=== PATIENT | male | born 1950 | race Caucasian/White ===

== ENCOUNTER 2017-04-17 18:34 | Inpatient (IN) | payer MEDICARE, OTHER ==
--- NOTE | 2017-04-17 18:49 | ED Physician Chart ---
ED Chief Complaint/HPI - Patient Information Date Seen:: 04/17/17 Time Seen:: 18:40 Chief Complaint:: AMS History of Present Illness:: onset x one day of AMS, ALOC, with abnormal labs; no report of trauma, H/As, LOC , S/T, neck pain, C/P, SOB, Abd. Pain, A/N/V/D/C, fever, chills, or urinary ss Historian:: Patient, EMS Review:: Nurse's Note Reviewed, Old Chart Reviewed, EMS run form Reviewed ED Review of Systems - Review of Systems General/Constitutional: No fever, No chills, No weight loss, No weakness, No diaphoresis, No edema, No loss of appetite Skin: No skin lesions, No rash, No bruising Head: No headache, No light-headedness Eyes: No loss of vision, No pain, No diplopia ENT: No earache, No nasal drainage, No sore throat, No tinnitus Neck: No neck pain, No swelling, No thyromegaly, No stiffness, No mass noted Cardio Vascular: No chest pain, No palpitations, No PND, No orthopnea, No edema Pulmonary: No SOB, No cough, No sputum, No wheezing GI: No nausea, No vomiting, No diarrhea, No pain, No melena, No hematochezia, No constipation, No hematemesis G/U: No dysuria, No frequency, No hematuria, No nacturia Musculoskeletal: No bone or joint pain, No back pain, No muscle pain Endocrine: No polyuria, No polydipsia Psychiatric: Prior psych history, No depression, Anxiety, No suicidal ideation, No homicidal ideation, Auditory hallucination, No visual hallucination Hematopoietic: No bruising, No lymphadenopathy Allergic/Immuno: No urticaria, No angioedema Neurological: No syncope, No focal symptoms, No weakness, No paresthesia, No headache, No seizure, No dizziness, Confusion, No vertigo ED Past Medical History - Past Medical History Obtainable: Yes Past Medical History: Dyslipidemia, PUD/GERD, Dementia, Other (Cirrhosis; Hepatitis C) Family History: Diabetes Melitus, HTN Social History: Smoker, Alcohol, No Drug Use, Single, Care Facility Surgical History: other (Hip Surgery) Psychiatricy History: Depression, Schizophrenia, Bipolar, Dementia Medication: Reviewed ED Physical Exam - Physical Examination General/Constitutional: Awake, Well-developed, well-nourished, Alert, No distress, GCS 15, Non-toxic appearing, Ambulatory Head: Atraumatic Eyes: Lids, conjuctiva normal, PERRL, EOMI Skin: Nl inspection, No rash, No skin lesions, No ecchymosis, Well hydrated, No lymphadenopathy ENMT: External ears, nose nl, TM canals nl, Nasal exam nl, Lips, teeth, gums nl , Oropharynx nl, Tonsils nl Neck: Nontender, Full ROM w/o pain, No JVD, No nuchal rigidity, No bruit, No mass, No stridor Respiratory: Nl effort/Exclusion, Clear to Auscultation, No Wheeze/Rhonchi/Rales Cardio Vascular: RRR, No murmur, gallop, rubs, NL S1 S2, Carotid/Femoral/Distal pulses equal bilaterally GI: No tenderness/rebounding/guarding, No organomegaly, No hernia, Normal BS's, Nondistended, No mass/bruits, No McBurney tenderness : No CVA tenderness Extremities: No tenderness or effusion, Full ROM, normal strength in all extremities, No edema, Normal digits & nails Neuro/Psych: Alert/oriented, DTR's symmetric, Normal sensory exam, Normal motor strength, Judgement/insight normal, Mood normal, Normal gait, No focal deficits Misc: Normal back, No paraspinal tenderness ED Labs/Radiology/EKG Results - Lab Results Comments:: H/H: 8.1/24.9 - EKG Interpretations EKG Time:: 19:00 Rate & Rhythm: 75; NSR Comments:: non-specific st-t changes ED Septic Shock - . Is Septic Shock (SBP<90, OR Lactate>4 mmol\L) present?: No ED Reassessment (Disposition) - Reassessment Reassessment Condition:: Improved - Diagnosis Diagnosis:: Anemia; ALOC; AMS; Abnormal Labs; Severe Anemia; GI Bleed - Aftercare/Follow up Instructions Aftercare/Follow-Up Instructions:: Counseled pt regarding lab results/diagnosis & need follow up, Counseled pt & family regarding lab results/diagnosis & need follow up - Patient Disposition Discharge/Transfer:: Acute Care w/in this hosp Accepting Physician:: Dr. Mcallister Time Called:: 1949 Time Responded:: 19:50 Admitted to:: Med/Surg Spoke to:: Dr. Mcallister Admitting Medical Physician:: Dr. Mcallister Condition at Disposition:: Stable, Improved
[2017-04-17 19:06] LABS: % BASOPHILS 1.1 % (0.0-2.0); % EOSINOPHILS 0.9 % (0.0-5.0); % LYMPHOCYTES 33.1 % (20.0-50.0); % MONOCYTES 10.6 % (2.0-10.0); % NEUTROPHILS 54.3 % (40.0-80.0); BASOPHILE ABSOLUTE 0.1 Th/cumm (0-0.2); EOSINOPHILE ABSOLUTE 0.1 Th/cmm (0.1-0.4); HEMATOCRIT 24.9 % (41.0-60); HEMOGLOBIN 8.1 gm/dL (12-16); MEAN CELL VOLUME 81.8 fl (80-99); MEAN CORPUSCULAR HEMOGLOBIN 26.7 pg (27.0-31.0); MEAN CORPUSCULAR HGB CONC 32.7 pg (28.0-36.0); MEAN PLATELET VOLUME 7.3 fl; MONOCYTE ABSOLUTE 0.6 Th/cmm (0.3-1.0); NEUTROPHILE ABSOLUTE 3.2 Th/cmm (1.8-8.0); PLATELET COUNT 519 Th/cmm (150-400); RED BLOOD COUNT 3.04 Mil/cmm (3.80-5.80)
[2017-04-17 19:21] LABS: ALB/GLOB RATIO 1.2 (1.0-1.8); ALBUMIN 3.3 gm/dL (4.2-5.5); ALKALINE PHOSPHATASE 46 U/L (34-104); ANION GAP 9.9 (7.0-16.0); BILIRUBIN,TOTAL 0.1 mg/dL (0.3-1.0); BUN - UREA NITROGEN 17 mg/dL (7-25); CALCIUM SERUM 8.9 mg/dL (8.6-10.3); CARBON DIOXIDE 25.9 mEq/L (21.0-31.0); CHLORIDE 105 mEq/L (98-107); CHOLESTEROL 111 mg/dL (<200); CREATININE - SERUM 0.8 mg/dL (0.7-1.3); CREATININE KINASE 104 U/L (30-223); GFR AFRICAN-AMERICAN > 60.0 ml/min (>90); GFR NON AFRICAN-AMERICAN > 60.0 ml/min; GLUCOSE 67 mg/dL (70-105); HDL -HIGH DENSITY LIPOPROTEIN 47 mg/dL (23-92); POTASSIUM SERUM 3.8 mEq/L (3.5-5.1); SGOT 14 U/L (13-39); SGPT/ALT 10 U/L (7-52); SODIUM SERUM 137 mEq/L (136-145); TOTAL PROTEIN,SERUM 6.1 gm/dL (6.0-8.3); TRIGLYCERIDES 85 mg/dL (<150)
[2017-04-17 19:28] LABS: INR 1.02 (0.5-1.4); PROTHROMBIN TIME (TEST) 10.6 SECONDS (9.5-11.5)
[2017-04-17] MEDS ORDERED: Magnesium Hydroxide (MOM) 30 mL UDC PO PRN (20:08)
[2017-04-17] MEDS ORDERED: Maalox 30 mL Cup PO PRN (20:11)
[2017-04-17 21:40] VITALS: BP 132/76
[2017-04-17] MEDS: Hydrocodone/APAP 5mg/325mg Tab PO PRN (23:19)
[2017-04-17] MEDS: D5-0.45NS 1,000 ML IV SCH (23:21)
[2017-04-18 05:20] LABS: MEAN CELL VOLUME 81.6 fl (80-99); MEAN CORPUSCULAR HEMOGLOBIN 26.6 pg (27.0-31.0); MEAN CORPUSCULAR HGB CONC 32.5 pg (28.0-36.0); MEAN PLATELET VOLUME 7.4 fl; PLATELET COUNT 496 Th/cmm (150-400); RED BLOOD COUNT 2.92 Mil/cmm (3.80-5.80); RED CELL DISTRIBUTION WIDTH 16.1 % (11.5-20.0); WHITE BLOOD COUNT 7.7 Th/cmm (4.8-10.8)
[2017-04-18 05:32] LABS: HEMATOCRIT 23.9 % (41.0-60); HEMOGLOBIN 7.8 gm/dL (12-16)
[2017-04-18 05:41] LABS: ANION GAP 9.8 (7.0-16.0); BUN - UREA NITROGEN 17 mg/dL (7-25); CALCIUM SERUM 8.7 mg/dL (8.6-10.3); CARBON DIOXIDE 27.7 mEq/L (21.0-31.0); CHLORIDE 106 mEq/L (98-107); CREATININE - SERUM 0.6 mg/dL (0.7-1.3); GFR AFRICAN-AMERICAN > 60.0 ml/min (>90); GFR NON AFRICAN-AMERICAN > 60.0 ml/min; GLUCOSE 89 mg/dL (70-105); POTASSIUM SERUM 3.5 mEq/L (3.5-5.1); SODIUM SERUM 140 mEq/L (136-145)
[2017-04-18 05:55] LABS: EOSINOPHIL 1 % (0-5); LYMPHOCYTE 27 % (20-50); MONOCYTE 12 % (2-10); NEUTROPHILS 60 % (40-80); TOTAL CELLS COUNTED 100
[2017-04-18] MEDS: Hydrocodone/APAP 5mg/325mg Tab PO PRN ×3 (06:32→21:38)
--- NOTE | 2017-04-18 08:34 | Diagnostic Imaging Report ---
Right shoulder 3 views Indication: Dislocation Comparison: none Findings: Postsurgical changes of the cervical spine are noted. Extremely high riding humeral head is seen with complete loss of the subacromial space and glenohumeral subluxation. Findings are most suggestive of a severe rotator cuff tear. Assessment for fracture is limited on this examination. There appears to be fragmentation of the acromion process. Impression: Extremely high riding humeral head with superior glenohumeral subluxation most likely secondary to chronic large rotator cuff tear. There appears to be fragmentation of the acromion process which is age indeterminate and may be chronic. Please refer to follow-up CT examination for further details. In the setting of trauma, if clinical symptoms persist and there is continued concern for an occult fracture, follow up exams in 5-7 days is suggested.
[2017-04-18] MEDS: D5-0.45NS 1,000 ML IV SCH (08:44)
[2017-04-18] MEDS: Multivitamin w/ Minerals Tab PO SCH (08:45)
[2017-04-18] MEDS: Ferrous Sulfate 325 MG TAB PO SCH (08:49)
[2017-04-18] MEDS: Pantoprazole 40 mg EC Tab PO SCH ×2 (08:49→16:48)
[2017-04-18] MEDS ORDERED: OMEPRAZOLE MAGNESIUM 20 MG PO SCH (09:00)
--- NOTE | 2017-04-18 09:03 | Diagnostic Imaging Report ---
CT of the right upper extremity without IV contrast History: Dislocation Comparison: CT of the right shoulder performed earlier the same day Technique: Axial images were obtained from the base of the neck to the proximal right humerus without IV contrast. Reconstructions were made. Total DLP 270, CTDI 13 Findings: There is a severe high riding humeral head with superior glenohumeral subluxation. There is diffuse fragmentation of the acromion process. A no gross acute fracture identified. Diffuse degenerative changes are seen with osteophytic spurs arising from the humeral head. Subchondral cystic changes of the humeral head are also noted. The lung de [place] demonstrate hypoventilatory changes. Postsurgical changes of the cervical and upper thoracic spine are noted. IMPRESSION: Severe high right riding humeral head with superior glenohumeral subluxation most likely due to chronic rotator cuff tear. There is also chronic appearing diffuse fragmentation of the acromion process. Please correlate with clinical findings and old exams. Degenerative changes. Posterior changes of the cervical thoracic spine.
--- NOTE | 2017-04-18 12:39 | Internal Medicine Prog Note ---
Internal Medicine Subjective - Subjective Service Date: 04/18/17 ([facility] dictated [id number]) Internal Medicine Objective - Results Result Diagrams: 04/18/17 04:50 04/18/17 04:50 Recent Labs: Laboratory Last Values WBC 7.7 Th/cmm (4.8-10.8) D 04/18/17 04:50 RBC 2.92 Mil/cmm (3.80-5.80) L 04/18/17 04:50 Hgb 7.8 gm/dL (12-16) L* 04/18/17 04:50 Hct 23.9 % (41.0-60) L 04/18/17 04:50 MCV 81.6 fl (80-99) 04/18/17 04:50 MCH 26.6 pg (27.0-31.0) L 04/18/17 04:50 MCHC Differential 32.5 pg (28.0-36.0) 04/18/17 04:50 RDW 16.1 % (11.5-20.0) 04/18/17 04:50 Plt Count 496 Th/cmm (150-400) H 04/18/17 04:50 MPV 7.4 fl 04/18/17 04:50 Neutrophils % 54.3 % (40.0-80.0) 04/17/17 18:59 Lymphocytes % 33.1 % (20.0-50.0) 04/17/17 18:59 Monocytes % 10.6 % (2.0-10.0) H 04/17/17 18:59 Eosinophils % 0.9 % (0.0-5.0) 04/17/17 18:59 Basophils % 1.1 % (0.0-2.0) 04/17/17 18:59 Neutrophils (Manual) 60 % (40-80) 04/18/17 04:50 Lymphocytes 27 % (20-50) 04/18/17 04:50 Monocytes 12 % (2-10) H 04/18/17 04:50 Eosinophils 1 % (0-5) 04/18/17 04:50 PT 10.6 SECONDS (9.5-11.5) 04/17/17 18:59 INR 1.02 (0.5-1.4) 04/17/17 18:59 Sodium 140 mEq/L (136-145) 04/18/17 04:50 Potassium 3.5 mEq/L (3.5-5.1) 04/18/17 04:50 Chloride 106 mEq/L (98-107) 04/18/17 04:50 Carbon Dioxide 27.7 mEq/L (21.0-31.0) 04/18/17 04:50 Anion Gap 9.8 (7.0-16.0) 04/18/17 04:50 BUN 17 mg/dL (7-25) 04/18/17 04:50 Creatinine 0.6 mg/dL (0.7-1.3) L 04/18/17 04:50 Est GFR ( Amer) > 60.0 ml/min (>90) 04/18/17 04:50 Est GFR (Non-Af Amer) > 60.0 ml/min 04/18/17 04:50 BUN/Creatinine Ratio 28.3 04/18/17 04:50 Glucose 89 mg/dL (70-105) 04/18/17 04:50 Calcium 8.7 mg/dL (8.6-10.3) 04/18/17 04:50 Total Bilirubin 0.1 mg/dL (0.3-1.0) L 04/17/17 18:59 AST 14 U/L (13-39) 04/17/17 18:59 ALT 10 U/L (7-52) 04/17/17 18:59 Alkaline Phosphatase 46 U/L (34-104) 04/17/17 18:59 Ammonia 44 umol/L (16-53) 04/18/17 04:50 Creatine Kinase 104 U/L (30-223) 04/17/17 18:59 Troponin I < 0.01 ng/mL (0.01-0.05) L 04/17/17 18:59 B-Natriuretic Peptide 143.0 pg/mL (5.0-100.0) H 04/17/17 18:59 Total Protein 6.1 gm/dL (6.0-8.3) 04/17/17 18:59 Albumin 3.3 gm/dL (4.2-5.5) L 04/17/17 18:59 Globulin 2.8 gm/dL 04/17/17 18:59 Albumin/Globulin Ratio 1.2 (1.0-1.8) 04/17/17 18:59 Triglycerides 85 mg/dL (<150) 04/17/17 18:59 Cholesterol 111 mg/dL (<200) 04/17/17 18:59 LDL Cholesterol Direct 67 mg/dL (75-193) L 04/17/17 18:59 HDL Cholesterol 47 mg/dL (23-92) 04/17/17 18:59 TSH 1.79 uIU/ml (0.34-5.60) 04/18/17 04:50 - Physical Exam Vitals and I&O: Vital Signs Temp 96.5 F 04/18/17 08:00 Pulse 79 04/18/17 09:38 Resp 18 04/18/17 09:38 BP 108/66 04/18/17 08:00 Pulse Ox 98 04/18/17 09:38 Intake & Output 04/17/17 04/18/17 04/18/17 18:59 06:59 18:59 Intake Total 450 750.667 Balance 450 750.667 Weight (lbs) 152 lb Intake: Intake, IV Amount 750.667 D5-0.45NS 1,000 ml @ 80 750.667 mls/hr IV .[id number] [facility] Rx #:[id number] Oral 450 Other: # Voids 2 # Bowel Movements 0 Active Medications: Current Medications Acetaminophen (Tylenol) 650 mg PO BID [facility] Stop: 06/17/17 08:59 Last Admin: 04/18/17 08:45 Dose: 650 mg Acetaminophen (Tylenol) 650 mg PO Q4H PRN PRN Reason: Pain Or Fever above 101 Stop: 06/16/17 20:10 Acetaminophen/Hydrocodone Bitart ([place] 5mg/325mg) 1 tab PO Q8H PRN PRN Reason: Pain (Severe) Stop: 06/16/17 21:36 Last Admin: 04/18/17 06:32 Dose: 1 tab Al Hydrox/Mg Hydrox/Simethicone (Maalox) 30 ml PO Q6H PRN PRN Reason: Dyspepsia Stop: 06/16/17 20:10 Albuterol Sulfate (Albuterol 2.5mg/3ml Neb Ud) 2.5 mg HHN Q2HRT PRN PRN Reason: Shortness of Breath or Wheeze Stop: 06/16/17 20:10 Aripiprazole (Abilify) 10 mg PO HS [facility] PRN Reason: Protocol Stop: 06/16/17 20:59 Last Admin: 04/18/17 00:26 Dose: Not Given Cyclobenzaprine HCl (Flexeril) 10 mg PO Q8HR PRN PRN Reason: Spasms Stop: 06/16/17 21:36 Last Admin: 04/18/17 06:33 Dose: 10 mg Docusate Sodium (Colace) 100 mg PO DAILY [facility] Stop: 06/17/17 08:59 Last Admin: 04/18/17 08:48 Dose: 100 mg Duloxetine HCl (Cymbalta) 30 mg PO DAILY [facility] PRN Reason: Protocol Stop: 06/17/17 08:59 Last Admin: 04/18/17 08:48 Dose: 30 mg Ferrous Sulfate (Iron) 325 mg PO DAILY [facility] Stop: 06/17/17 08:59 Last Admin: 04/18/17 08:49 Dose: 325 mg Gabapentin (Neurontin) 300 mg PO TID [facility] Stop: 06/16/17 20:59 Last Admin: 04/18/17 08:48 Dose: 300 mg Dextrose/Sodium Chloride (D5-0.45ns) 1,000 mls @ 80 mls/hr IV .[id number] [facility] Stop: 06/16/17 20:14 Last Admin: 04/18/17 08:44 Dose: 80 mls/hr Ipratropium Ethel (Atrovent Neb 0.5mg/2.5ml) 0.5 mg HHN Q2HRT PRN PRN Reason: Shortness of Breath or Wheeze Stop: 06/16/17 20:10 Magnesium Hydroxide (Milk Of Magnesia) 30 ml PO DAILY PRN PRN Reason: Constipation Stop: 06/16/17 20:07 Nitroglycerin (Nitrostat) 0.4 mg SL Q5MIN PRN PRN Reason: Chest Pain Stop: 06/16/17 20:10 Ondansetron HCl (Zofran) 4 mg IV Q8H PRN PRN Reason: Nausea / Vomiting Stop: 06/16/17 20:10 Pantoprazole Sodium (Protonix) 40 mg PO BID [facility] Stop: 06/17/17 08:59 Last Admin: 04/18/17 08:49 Dose: 40 mg
--- NOTE | 2017-04-18 15:03 | Diagnostic Imaging Report ---
Head CT without intravenous contrast Indication: Fall Comparison: None Technique: Axial images were obtained from the vertex to the skull base without IV contrast. Coronal reconstructions were made. Total DLP: 590, CTDI36 FINDINGS: Images of the brain obtained without contrast demonstrate no evidence of an acute hemorrhage. The bianchi-white matter differentiation is preserved. The ventricles and basal cisterns are patent. No mass effect or midline shift. No evidence of a skull fracture or focal soft tissue swelling. There is mild mucosal thickening of the paranasal sinuses. IMPRESSION: No acute intracranial abnormality.
--- NOTE | 2017-04-18 15:07 | History & Physical ---
ADMIT DATE: 04/18/2017 CHIEF COMPLAINT: Abnormal labs. HISTORY OF PRESENT ILLNESS: This is a 66-year-old male who is well known to me. The patient is a resident of [facility] who I have evaluated yesterday. Upon reviewing the patient's laboratory results, patient's hemoglobin was at 7.4 at the [facility]. Due to this reason, the patient is now admitted to the med/surg unit. PAST MEDICAL HISTORY: Dyslipidemia, PUD, GERD, dementia, cirrhosis and hepatitis C. FAMILY HISTORY: Noncontributory. SOCIAL HISTORY: The patient is a [facility] resident, requiring 24-hour nursing care. SURGICAL HISTORY: Hip surgery. MEDICATIONS: Please see medication sheet. REVIEW OF SYSTEMS: GENERAL: Denies any fevers, any chills. CARDIOVASCULAR: Denies chest pain. RESPIRATORY: Denies shortness of breath. GASTROINTESTINAL: Denies nausea, vomiting, abdominal pain. GENITOURINARY: Denies increased work of dysuria. NEUROLOGIC: No headaches, seizures or syncope. All other systems are reviewed and are negative. PHYSICAL EXAMINATION: GENERAL: The patient is well developed, well nourished, no apparent distress. VITAL SIGNS: Temperature 96.5, heart rate 90, blood pressure 108/66, respirations 17, O2 98%. HEENT: Head; normocephalic, atraumatic. NECK: Supple. No mass. LUNGS: Clear bilaterally. ABDOMEN: Soft, nontender. LABORATORY DATA: WBC 7.7, H and H 7.8 and 23.9, platelet 496. Sodium 140, potassium 3.5, chloride 106, BUN 17, creatinine 0.6. BNP of 143, albumin of 3.3. DIAGNOSTICS: The patient had a CT of the upper extremity due to patient complaining of bilateral shoulder pain and the impression is severe high-riding humeral head with superior glenohumeral subluxation, mostly likely due to chronic rotator cuff tear. There is also chronic appearing diffuse fragmentation of the acromion process, degenerative changes. The patient has an x-ray of the shoulder as well and the impression is extremely high riding humeral head with superior glenohumeral subluxation, most likely secondary to chronic large rotator cuff tear. There appears to be fragmentation of the acromion process, which is age indeterminate and may be chronic. ASSESSMENT: Severe anemia, possible gastrointestinal bleed, dyslipidemia, GERD, dementia, cirrhosis and hepatitis C. PLAN: The patient to be admitted to the med/surg unit. We will get GI on the case. We will keep the patient on IV fluids for hydration. We will get stool for occult blood. Monitor the patient's ferritin levels as well as iron. Keep patient on PPIs. We will continue to follow this patient. JOB# [id number]
[2017-04-18 19:02] LABS: RBC RETICULOCYTE COUNT 2.92 Mil/cmm
[2017-04-18 19:03] LABS: ABSOLUTE RETICULOCYTE 17.5 Th/cmm; CORRECTED RETICULOCYTE COUNT 0.3 % (0.5-1.5); HEMATOCRIT 23.9 % (40.0-54.0); RETICULOCYTES % COUNTED 0.6 % (0.5-1.5)
--- NOTE | 2017-04-19 01:45 | Consultation ---
DATE OF CONSULTATION: 04/18/2017 ORTHOPEDIC SURGERY CONSULTATION HISTORY OF PRESENT ILLNESS: The patient is a 66-year-old gentleman admitted to [facility] on 04/17/2017 for workup and treatment of abnormal labs and neck and shoulder pain. I was called in orthopedic consultation regarding his complaints of shoulder pain. The patient stated he has rheumatoid arthritis and affects all of his joints. He has had arthroscopic right knee surgery on three different occasions. He has also had hip surgery. He stated both shoulders are painful at times and he has difficulty fully raising his arms. He thinks his condition became progressive over a period of time - it was not due to a particular injury. The patient who is a resident of [facility] carries additional diagnoses of GERD, dementia, cirrhosis, hepatitis C, PUD, dyslipidemia, anemia, ALOC, and GI bleeding. FAMILY HISTORY: Noncontributory. REVIEW OF SYSTEMS: No additional systemic complaints. PHYSICAL EXAMINATION: The patient is examined in his hospital room at [facility]. He was eating his evening meal and seemed comfortable. I noted enlargement of the IP joints of his fingers, both hands. I asked him to raise his shoulders and he was able to move to 70% of normal movement with discomfort and crepitation, worse on the right with assistance, unable to range the shoulders more. There is enlargement of the right knee joint and well healed arthroscopic scars with limited extension at 165 degrees. IMAGING STUDIES: Reviewed x-rays in the PACS of the patient's right shoulder. The humeral head is articulating up against the acromion and the coracoid process, which indicates that the long head of the biceps and the rotator cuff are absent. There is narrowing and enlargement of the acromioclavicular joint, i.e., arthritis. ORTHOPEDIC DIAGNOSES: 1. Generalized arthritis -- probably rheumatoid arthritis. 2. Decrease in rotator cuff and long head of biceps, right shoulder. 3. Arthritis, right shoulder. 4. Arthritis, acromioclavicular joint. RECOMMENDATIONS: The patient who appears older than stated age and who is chronically ill is no candidate for shoulder replacement surgery - a fairly major procedure. He is reasonably comfortable in his present state and uses his shoulder as well. If it were desired and if his condition would permit he could have surgery either hemiarthroplasty or total shoulder replacement, which would afford him significantly relief. Thank you for this interesting referral. JOB# [id number]
[2017-04-19 05:13] LABS: HEMATOCRIT 24.7 % (41.0-60); MEAN CELL VOLUME 81.9 fl (80-99); MEAN CORPUSCULAR HEMOGLOBIN 25.6 pg (27.0-31.0); MEAN CORPUSCULAR HGB CONC 31.2 pg (28.0-36.0); MEAN PLATELET VOLUME 7.3 fl; PLATELET COUNT 477 Th/cmm (150-400); RED BLOOD COUNT 3.02 Mil/cmm (3.80-5.80); RED CELL DISTRIBUTION WIDTH 15.8 % (11.5-20.0)
[2017-04-19 05:21] LABS: HEMOGLOBIN 7.7 gm/dL (12-16); WHITE BLOOD COUNT 5.7 Th/cmm (4.8-10.8)
[2017-04-19 05:27] LABS: INR 1.01 (0.5-1.4); PROTHROMBIN TIME (TEST) 10.5 SECONDS (9.5-11.5)
[2017-04-19 05:31] LABS: ALB/GLOB RATIO 1.1 (1.0-1.8); ALKALINE PHOSPHATASE 51 U/L (34-104); ANION GAP 8.1 (7.0-16.0); BILIRUBIN,TOTAL 0.2 mg/dL (0.3-1.0); BUN - UREA NITROGEN 15 mg/dL (7-25); CALCIUM SERUM 8.6 mg/dL (8.6-10.3); CARBON DIOXIDE 29.5 mEq/L (21.0-31.0); CHLORIDE 105 mEq/L (98-107); CREATININE - SERUM 0.6 mg/dL (0.7-1.3); GFR AFRICAN-AMERICAN > 60.0 ml/min (>90); GFR NON AFRICAN-AMERICAN > 60.0 ml/min; GLUCOSE 88 mg/dL (70-105); POTASSIUM SERUM 3.6 mEq/L (3.5-5.1); SGOT 18 U/L (13-39); SGPT/ALT 13 U/L (7-52); SODIUM SERUM 139 mEq/L (136-145); TOTAL PROTEIN,SERUM 5.7 gm/dL (6.0-8.3)
[2017-04-19 06:07] LABS: EOSINOPHIL 2 % (0-5); LYMPHOCYTE 44 % (20-50); MONOCYTE 7 % (2-10); NEUTROPHILS 47 % (40-80); TOTAL CELLS COUNTED 100
--- NOTE | 2017-04-19 07:51 | Diagnostic Imaging Report ---
Some: Chest x-ray HISTORY: Preop. Frontal termination of the chest was reviewed. The study demonstrates no active pulmonic infiltrates or effusions. COPD changes are noted. Mild atelectatic changes in left base appreciated. Bony thorax remarkable for fusion of the lower cervical spine. The aortic arch calcified. IMPRESSION: COPD changes no acute disease.
[2017-04-19] MEDS: D5-0.45NS 1,000 ML IV SCH ×2 (08:08→14:24)
[2017-04-19] MEDS: Ferrous Sulfate 325 MG TAB PO SCH (09:25)
[2017-04-19] MEDS: Multivitamin w/ Minerals Tab PO SCH (09:25)
[2017-04-19] MEDS: Pantoprazole 40 mg EC Tab PO SCH ×2 (09:26→17:41)
--- NOTE | 2017-04-19 11:26 | Consultation ---
DATE OF CONSULTATION: 04/18/2017 REASON FOR CONSULT: Severe anemia. HISTORY OF PRESENT ILLNESS: This consult was obtained through the courtesy of Dr. Mcallister and Harper Beltran, nurse practitioner for this 66-year-old with history of hepatitis C, cirrhosis, early dementia, peptic ulcer disease, hyperlipidemia, admitted to the hospital because of routine blood tests that shows hemoglobin down to 7.4. The patient denies any active complaint except occasional nausea. PAST MEDICAL HISTORY: Hyperlipidemia, peptic ulcer disease, hepatitis C, cirrhosis, possible dementia. PAST SURGICAL HISTORY: He had back surgery. He had leg surgery. He had arm surgery and thyroid surgery and he has neck surgery. SOCIAL HISTORY: Used to drink a pint of vodka every day, but cut down and use drugs in the nose, last time was 4 weeks ago. FAMILY HISTORY: Noncontributory. REVIEW OF SYSTEMS: No weight loss, no hematemesis, melena, or hematochezia. PHYSICAL EXAMINATION: GENERAL: The patient is awake, oriented to self, place, and time. VITAL SIGNS: Blood pressure is 112/72, heart rate 79, respiratory rate 17, temperature is 98.2. HEAD AND NECK: Pupils reactive to light and accommodation. Extraocular muscles intact. Sclerae are anicteric. Conjunctivae pale. Oral cavity, no lesion. NECK: Supple. No jugular venous distention. No carotid bruit or lymph node. CHEST: Good air entry. LUNGS: Clear to auscultation. BACK: Showed big lipoma, a medium size lipoma, possible erythema. ABDOMEN: Soft, benign, nontender. Bowel sounds are present. EXTREMITIES: Lower extremities, no edema. CENTRAL NERVOUS SYSTEM: Grossly nonfocal. LABORATORY DATA: Hemoglobin 7.8. PT is normal. Chemistry showed normal liver enzymes. Albumin is low at 3.3. The patient had a head CT, no acute abnormalities. IMPRESSION: A 66-year-old with anemia. ASSESSMENT: Anemia. The patient will need gastrointestinal workup, rule out upper gastrointestinal malignancy versus colon cancer versus colitis versus peptic ulcer disease. RECOMMENDATIONS: 1. Monitor H and H. 2. Transfuse as needed. 3. Iron studies and B12 and folic acid. 4. EGD and colonoscopy in the morning. 5. Further recommendations to follow. Other medical problems such as hyperlipidemia, thyroid, etc., as per Dr. Mcallister. History of hepatitis C and cirrhosis. This needs to be checked as an outpatient at least for the time being, platelets are normal and albumin is not bad, so maybe patient is not really ____. Thank you, Dr. Mcallister for allowing me to participate in the care of the patient. If you have any further questions, please let me know. JOB# [id number]
--- NOTE | 2017-04-19 11:55 | Internal Medicine Prog Note ---
Internal Medicine Subjective - Subjective Service Date: 04/19/17 Patient seen and examined:: with staff Patient is:: awake Per staff patient has:: tolerating meds Internal Medicine Objective - Results Result Diagrams: 04/19/17 04:50 04/19/17 04:50 Recent Labs: Laboratory Last Values WBC 5.7 Th/cmm (4.8-10.8) D 04/19/17 04:50 RBC 3.02 Mil/cmm (3.80-5.80) L 04/19/17 04:50 Hgb 7.7 gm/dL (12-16) L* 04/19/17 04:50 Hct 24.7 % (41.0-60) L 04/19/17 04:50 MCV 81.9 fl (80-99) 04/19/17 04:50 MCH 25.6 pg (27.0-31.0) L 04/19/17 04:50 MCHC Differential 31.2 pg (28.0-36.0) 04/19/17 04:50 RDW 15.8 % (11.5-20.0) 04/19/17 04:50 Plt Count 477 Th/cmm (150-400) H 04/19/17 04:50 MPV 7.3 fl 04/19/17 04:50 Neutrophils % 54.3 % (40.0-80.0) 04/17/17 18:59 Band Neutrophils % Not Reportable 04/19/17 04:50 Lymphocytes % 33.1 % (20.0-50.0) 04/17/17 18:59 Monocytes % 10.6 % (2.0-10.0) H 04/17/17 18:59 Eosinophils % 0.9 % (0.0-5.0) 04/17/17 18:59 Basophils % 1.1 % (0.0-2.0) 04/17/17 18:59 Neutrophils (Manual) 47 % (40-80) 04/19/17 04:50 Lymphocytes 44 % (20-50) 04/19/17 04:50 Monocytes 7 % (2-10) 04/19/17 04:50 Eosinophils 2 % (0-5) 04/19/17 04:50 Total Retics Counted 0.6 % (0.5-1.5) 04/18/17 04:50 Absolute Retic 17.5 Th/cmm 04/18/17 04:50 Corrected Retic Count 0.3 % (0.5-1.5) L 04/18/17 04:50 PT 10.5 SECONDS (9.5-11.5) 04/19/17 04:50 INR 1.01 (0.5-1.4) 04/19/17 04:50 PTT (Actin FS) 25.5 SECONDS (26.0-38.0) L 04/19/17 04:50 Sodium 139 mEq/L (136-145) 04/19/17 04:50 Potassium 3.6 mEq/L (3.5-5.1) 04/19/17 04:50 Chloride 105 mEq/L (98-107) 04/19/17 04:50 Carbon Dioxide 29.5 mEq/L (21.0-31.0) 04/19/17 04:50 Anion Gap 8.1 (7.0-16.0) 04/19/17 04:50 BUN 15 mg/dL (7-25) 04/19/17 04:50 Creatinine 0.6 mg/dL (0.7-1.3) L 04/19/17 04:50 Est GFR ( Amer) > 60.0 ml/min (>90) 04/19/17 04:50 Est GFR (Non-Af Amer) > 60.0 ml/min 04/19/17 04:50 BUN/Creatinine Ratio 25.0 04/19/17 04:50 Glucose 88 mg/dL (70-105) 04/19/17 04:50 Calcium 8.6 mg/dL (8.6-10.3) 04/19/17 04:50 Total Bilirubin 0.2 mg/dL (0.3-1.0) L 04/19/17 04:50 AST 18 U/L (13-39) 04/19/17 04:50 ALT 13 U/L (7-52) 04/19/17 04:50 Alkaline Phosphatase 51 U/L (34-104) 04/19/17 04:50 Ammonia 44 umol/L (16-53) 04/18/17 04:50 Creatine Kinase 104 U/L (30-223) 04/17/17 18:59 Troponin I < 0.01 ng/mL (0.01-0.05) L 04/17/17 18:59 B-Natriuretic Peptide 143.0 pg/mL (5.0-100.0) H 04/17/17 18:59 Total Protein 5.7 gm/dL (6.0-8.3) L 04/19/17 04:50 Albumin 3.0 gm/dL (4.2-5.5) L 04/19/17 04:50 Globulin 2.7 gm/dL 04/19/17 04:50 Albumin/Globulin Ratio 1.1 (1.0-1.8) 04/19/17 04:50 Triglycerides 85 mg/dL (<150) 04/17/17 18:59 Cholesterol 111 mg/dL (<200) 04/17/17 18:59 LDL Cholesterol Direct 67 mg/dL (75-193) L 04/17/17 18:59 HDL Cholesterol 47 mg/dL (23-92) 04/17/17 18:59 TSH 1.79 uIU/ml (0.34-5.60) 04/18/17 04:50 Stool Occult Blood NEGATIVE (NEGATIVE) 04/19/17 02:45 - Physical Exam Vitals and I&O: Vital Signs Temp 97.0 F 04/19/17 08:22 Pulse 69 04/19/17 08:22 Resp 18 04/19/17 08:22 BP 126/78 04/19/17 08:22 Pulse Ox 100 04/19/17 08:22 Intake & Output 04/18/1718 04/19/17 18:59 06:59 18:59 Intake Total 829.024 7568 Output Total 1900 Balance 750.667 -900 Weight (lbs) 148 lb 11.2 oz Intake: Intake, IV Amount 111.087 0279 D5-0.45NS 1,000 ml @ 80 270.697 7658 mls/hr IV .[id number] [facility] Rx #:[id number] Output: Urine 1900 Other: # Bowel Movements 2 Stool Characteristics Soft Formed Liquid Active Medications: Current Medications Acetaminophen (Tylenol) 650 mg PO BID [facility] Stop: 06/17/17 08:59 Last Admin: 04/19/17 09:25 Dose: Not Given Acetaminophen (Tylenol) 650 mg PO Q4H PRN PRN Reason: Pain Or Fever above 101 Stop: 06/16/17 20:10 Acetaminophen/Hydrocodone Bitart ([place] 5mg/325mg) 1 tab PO Q8H PRN PRN Reason: Pain (Severe) Stop: 06/16/17 21:36 Last Admin: 04/18/17 21:38 Dose: 1 tab Al Hydrox/Mg Hydrox/Simethicone (Maalox) 30 ml PO Q6H PRN PRN Reason: Dyspepsia Stop: 06/16/17 20:10 Albuterol Sulfate (Albuterol 2.5mg/3ml Neb Ud) 2.5 mg HHN Q2HRT PRN PRN Reason: Shortness of Breath or Wheeze Stop: 06/16/17 20:10 Aripiprazole (Abilify) 10 mg PO HS NICKI PRN Reason: Protocol Stop: 06/16/17 20:59 Last Admin: 04/18/17 21:43 Dose: 10 mg Cyclobenzaprine HCl (Flexeril) 10 mg PO Q8HR PRN PRN Reason: Spasms Stop: 06/16/17 21:36 Last Admin: 04/19/17 01:17 Dose: 10 mg Docusate Sodium (Colace) 100 mg PO DAILY [facility] Stop: 06/17/17 08:59 Last Admin: 04/19/17 09:25 Dose: Not Given Duloxetine HCl (Cymbalta) 30 mg PO DAILY N[facility]I PRN Reason: Protocol Stop: 06/17/17 08:59 Last Admin: 04/19/17 09:25 Dose: Not Given Ferrous Sulfate (Iron) 325 mg PO DAILY [facility] Stop: 06/17/17 08:59 Last Admin: 04/19/17 09:25 Dose: Not Given Gabapentin (Neurontin) 300 mg PO TID [facility] Stop: 06/16/17 20:59 Last Admin: 04/19/17 09:25 Dose: Not Given Dextrose/Sodium Chloride (D5-0.45ns) 1,000 mls @ 80 mls/hr IV .[id number] [facility] Stop: 06/16/17 20:14 Last Admin: 04/19/17 08:08 Dose: 80 mls/hr Ipratropium [place] (Atrovent Neb 0.5mg/2.5ml) 0.5 mg HHN Q2HRT PRN PRN Reason: Shortness of Breath or Wheeze Stop: 06/16/17 20:10 Magnesium Hydroxide (Milk Of Magnesia) 30 ml PO DAILY PRN PRN Reason: Constipation Stop: 06/16/17 20:07 Nitroglycerin (Nitrostat) 0.4 mg SL Q5MIN PRN PRN Reason: Chest Pain Stop: 06/16/17 20:10 Ondansetron HCl (Zofran) 4 mg IV Q8H PRN PRN Reason: Nausea / Vomiting Stop: 06/16/17 20:10 Pantoprazole Sodium (Protonix) 40 mg PO BID [facility] Stop: 06/17/17 08:59 Last Admin: 04/19/17 09:26 Dose: Not Given General: alert HEENT: NC/AT, PERRLA Neck: Supple Lungs: CTAB Cardiovascular: RRR, Normal S1, Normal S2, without murmur Abdomen: soft, non-tender, non-distended, positive bowel sound Neurological: alert Internal Medicine Assmt/Plan - Assessment Assessment: severe anemia possible gi bleed dyslipidemia gerd dementia cirrhosis hepatitis c left shoulder pain - Plan Plan: egd/colon today monitor h/h cbc/bmp in am continue ivf for hydration continue current orders
[2017-04-19] MEDS ORDERED: Propofol 10 mg/mL 20mL Vial **SURGERY USE ONLY IV ONE (12:55)
[2017-04-19] MEDS ORDERED: Lidocaine 2% Gel 5 mL TP ONE (12:55)
[2017-04-19] MEDS: Hydrocodone/APAP 5mg/325mg Tab PO PRN ×2 (14:20→22:54)
--- NOTE | 2017-04-19 16:31 | Operative Report ---
DATE OF SURGERY: 04/19/2017 PROCEDURE: 1. Esophagogastroduodenoscopy with biopsy. 2. Colonoscopy with snare cautery polypectomy. PREOPERATIVE DIAGNOSES: 1. Anemia. 2. Change in bowel habits. POSTPROCEDURE DIAGNOSES: 1. Upper endoscopy showing mild reflux esophagitis with a probable 3 cm segment of [place]azar esophagus, status post biopsy; moderate 3 cm hiatal hernia; mild gastritis, status post biopsy and CLOtest; normal duodenum, status post biopsies to rule out celiac disease. 2. Colonoscopy showing 8 mm sessile transverse colon polyp, excised by snare cautery polypectomy; poor bowel preparation and rectosigmoid colon; small internal hemorrhoids. INDICATIONS: A 66-year-old male undergoing an upper endoscopy and colonoscopy for iron-deficiency anemia and change in bowel habits. CONSENT: Informed consent was obtained from the patient prior to procedure after explaining risks, benefits, and alternatives including but not limited to, infection, bleeding, perforation, and . SEDATION: Monitored anesthesia care per Dr. De. DESCRIPTION OF PROCEDURE AND FINDINGS: The procedure took place as an inpatient in the GI suite of [facility]. The patient was kept in a left lateral decubitus position. Adequate sedation was achieved with above medications. Initially, an upper endoscopy was performed followed by colonoscopy. An Olympus diagnostic upper endoscope was advanced through the patient's mouth and into the esophagus. Here, there was mild to moderate erosive reflux esophagitis. The Z line was irregular appearing at 37 cm from the gums. The top of the gastric folds was at 40 cm from the gums. There was likely a 3 cm segment of [place] esophagus. Biopsies were obtained from the segment to confirm metaplasia and rule out dysplasia. The diaphragmatic pinch was at 43 cm from the gums. There was likely a 3 cm long hiatal hernia identified. No GE junction masses or varices were identified. On retroflexion in the stomach, mild gastritis was identified in the antrum. Biopsy was obtained from antrum and mid body submitted for CLOtest as well as pathology. The pyloric channel and duodenum up to this portion appeared normal. Random biopsies were obtained for second portion to rule out celiac disease. Scope was withdrawn from the patient. The patient was then repositioned. Colonoscopy was performed. Rectal examination revealed normal sphincter tone with no rectal masses. An Olympus colonoscope was advanced via the patient's anus and into the rectum with ease. It was advanced up to the cecum, which was visualized by landmarks of ileocecal valve and appendiceal orifice. The quality of the bowel preparation was fair to poor, especially in the distal colon where lesion less than 1 cm may have been missed. In the mid transverse colon, there was an 8 mm semi-sessile polyp that was excised by snare cautery polypectomy. Retroflexion in the rectum revealed small internal hemorrhoids. No diverticulosis or colitis was identified. The patient tolerated the procedure well and no complications are anticipated. RECOMMENDATIONS: 1. Follow up biopsy results. 2. Protonix. 3. Diet as tolerated. 4. Monitor hemoglobin and transfuse as necessary. Thank you, Dr. Abdiel Mcallister for involving us in the care of your patient. If you have any further questions, please call us. JOB# [id number] TAD
[2017-04-19] MEDS: Ipratropium Neb 0.5 mg/2.5 mL UD HHN PRN (18:48)
[2017-04-19] MEDS: Albuterol Nebulizer 2.5mg/3mL HHN PRN (18:49)
[2017-04-20] MEDS: D5-0.45NS 1,000 ML IV SCH ×2 (02:03→16:41)
[2017-04-20 05:43] LABS: ANION GAP 3.4 (7.0-16.0); BUN - UREA NITROGEN 14 mg/dL (7-25); CALCIUM SERUM 8.7 mg/dL (8.6-10.3); CARBON DIOXIDE 26.8 mEq/L (21.0-31.0); CHLORIDE 109 mEq/L (98-107); CREATININE - SERUM 0.8 mg/dL (0.7-1.3); GFR AFRICAN-AMERICAN > 60.0 ml/min (>90); GFR NON AFRICAN-AMERICAN > 60.0 ml/min; GLUCOSE 132 mg/dL (70-105); POTASSIUM SERUM 3.2 mEq/L (3.5-5.1); SODIUM SERUM 136 mEq/L (136-145)
[2017-04-20 06:34] LABS: % BASOPHILS 0.1 % (0.0-2.0); % EOSINOPHILS 1.1 % (0.0-5.0); % MONOCYTES 9.8 % (2.0-10.0); EOSINOPHILE ABSOLUTE 0.1 Th/cmm (0.1-0.4); LYMPHOCYTE ABSOLUTE 2.2 Th/cmm (1.5-3.0); MEAN CELL VOLUME 81.5 fl (80-99); MEAN CORPUSCULAR HEMOGLOBIN 26.4 pg (27.0-31.0); MEAN CORPUSCULAR HGB CONC 32.4 pg (28.0-36.0); MEAN PLATELET VOLUME 8.3 fl; MONOCYTE ABSOLUTE 0.8 Th/cmm (0.3-1.0); NEUTROPHILE ABSOLUTE 5.3 Th/cmm (1.8-8.0); PLATELET COUNT 477 Th/cmm (150-400); RED BLOOD COUNT 2.93 Mil/cmm (3.80-5.80); RED CELL DISTRIBUTION WIDTH 16.3 % (11.5-20.0)
[2017-04-20 06:35] LABS: WHITE BLOOD COUNT 8.4 Th/cmm (4.8-10.8)
[2017-04-20 06:37] LABS: HEMOGLOBIN 7.8 gm/dL (12-16)
[2017-04-20 06:38] LABS: HEMATOCRIT 23.9 % (41.0-60)
[2017-04-20] MEDS: Hydrocodone/APAP 5mg/325mg Tab PO PRN ×2 (07:42→18:16)
--- NOTE | 2017-04-20 08:40 | GI Progress Note ---
Subjective - Review of Systems Service Date: 04/20/17 Subjective: Feeling well, no overnight events Objective - Results Result Diagrams: 04/20/17 04:45 04/20/17 04:45 Recent Labs: Laboratory Last Values WBC 8.4 Th/cmm (4.8-10.8) D 04/20/17 04:45 RBC 2.93 Mil/cmm (3.80-5.80) L 04/20/17 04:45 Hgb 7.8 gm/dL (12-16) L* 04/20/17 04:45 Hct 23.9 % (41.0-60) L 04/20/17 04:45 MCV 81.5 fl (80-99) 04/20/17 04:45 MCH 26.4 pg (27.0-31.0) L 04/20/17 04:45 MCHC Differential 32.4 pg (28.0-36.0) 04/20/17 04:45 RDW 16.3 % (11.5-20.0) 04/20/17 04:45 Plt Count 477 Th/cmm (150-400) H 04/20/17 04:45 MPV 8.3 fl 04/20/17 04:45 Neutrophils % 63.0 % (40.0-80.0) 04/20/17 04:45 Band Neutrophils % Not Reportable 04/19/17 04:50 Lymphocytes % 26.0 % (20.0-50.0) 04/20/17 04:45 Monocytes % 9.8 % (2.0-10.0) 04/20/17 04:45 Eosinophils % 1.1 % (0.0-5.0) 04/20/17 04:45 Basophils % 0.1 % (0.0-2.0) 04/20/17 04:45 Neutrophils (Manual) 47 % (40-80) 04/19/17 04:50 Lymphocytes 44 % (20-50) 04/19/17 04:50 Monocytes 7 % (2-10) 04/19/17 04:50 Eosinophils 2 % (0-5) 04/19/17 04:50 Total Retics Counted 0.6 % (0.5-1.5) 04/18/17 04:50 Absolute Retic 17.5 Th/cmm 04/18/17 04:50 Corrected Retic Count 0.3 % (0.5-1.5) L 04/18/17 04:50 PT 10.5 SECONDS (9.5-11.5) 04/19/17 04:50 INR 1.01 (0.5-1.4) 04/19/17 04:50 PTT (Actin FS) 25.5 SECONDS (26.0-38.0) L 04/19/17 04:50 Sodium 136 mEq/L (136-145) 04/20/17 04:45 Potassium 3.2 mEq/L (3.5-5.1) L 04/20/17 04:45 Chloride 109 mEq/L (98-107) H 04/20/17 04:45 Carbon Dioxide 26.8 mEq/L (21.0-31.0) 04/20/17 04:45 Anion Gap 3.4 (7.0-16.0) L 04/20/17 04:45 BUN 14 mg/dL (7-25) 04/20/17 04:45 Creatinine 0.8 mg/dL (0.7-1.3) 04/20/17 04:45 Est GFR ( Amer) > 60.0 ml/min (>90) 04/20/17 04:45 Est GFR (Non-Af Amer) > 60.0 ml/min 04/20/17 04:45 BUN/Creatinine Ratio 17.5 04/20/17 04:45 Glucose 132 mg/dL (70-105) H 04/20/17 04:45 POC Glucose 99 MG/DL (70 - 105) 04/19/17 12:03 Calcium 8.7 mg/dL (8.6-10.3) 04/20/17 04:45 Total Bilirubin 0.2 mg/dL (0.3-1.0) L 04/19/17 04:50 AST 18 U/L (13-39) 04/19/17 04:50 ALT 13 U/L (7-52) 04/19/17 04:50 Alkaline Phosphatase 51 U/L (34-104) 04/19/17 04:50 Ammonia 44 umol/L (16-53) 04/18/17 04:50 Creatine Kinase 104 U/L (30-223) 04/17/17 18:59 Troponin I < 0.01 ng/mL (0.01-0.05) L 04/17/17 18:59 B-Natriuretic Peptide 143.0 pg/mL (5.0-100.0) H 04/17/17 18:59 Total Protein 5.7 gm/dL (6.0-8.3) L 04/19/17 04:50 Albumin 3.0 gm/dL (4.2-5.5) L 04/19/17 04:50 Globulin 2.7 gm/dL 04/19/17 04:50 Albumin/Globulin Ratio 1.1 (1.0-1.8) 04/19/17 04:50 Triglycerides 85 mg/dL (<150) 04/17/17 18:59 Cholesterol 111 mg/dL (<200) 04/17/17 18:59 LDL Cholesterol Direct 67 mg/dL (75-193) L 04/17/17 18:59 HDL Cholesterol 47 mg/dL (23-92) 04/17/17 18:59 TSH 1.79 uIU/ml (0.34-5.60) 04/18/17 04:50 Stool Occult Blood NEGATIVE (NEGATIVE) 04/19/17 02:45 - Physical Exam Vitals and I&O: Vital Signs Temp 99.4 F 04/20/17 04:00 Pulse 82 04/20/17 07:00 Resp 14 04/20/17 07:00 BP 100/54 04/20/17 04:00 Pulse Ox 98 04/20/17 07:00 Intake & Output 04/19/17 04/20/17 04/20/17 18:59 06:59 18:59 Intake Total 501.333 932 Balance 501.333 932 Intake: Intake, IV Amount 501.333 932 D5-0.45NS 1,000 ml @ 80 501.333 932 mls/hr IV .[id number] [facility] Rx #:[id number] Other: Stool Characteristics Soft Liquid Brown Active Medications: Current Medications Acetaminophen (Tylenol) 650 mg PO BID [facility] Stop: 06/17/17 08:59 Last Admin: 04/19/17 17:40 Dose: 650 mg Acetaminophen (Tylenol) 650 mg PO Q4H PRN PRN Reason: Pain Or Fever above 101 Stop: 06/16/17 20:10 Acetaminophen/Hydrocodone Bitart ([place] 5mg/325mg) 1 tab PO Q8H PRN PRN Reason: Pain (Severe) Stop: 06/16/17 21:36 Last Admin: 04/20/17 07:42 Dose: 1 tab Al Hydrox/Mg Hydrox/Simethicone (Maalox) 30 ml PO Q6H PRN PRN Reason: Dyspepsia Stop: 06/16/17 20:10 Albuterol Sulfate (Albuterol 2.5mg/3ml Neb Ud) 2.5 mg HHN Q2HRT PRN PRN Reason: Shortness of Breath or Wheeze Stop: 06/16/17 20:10 Last Admin: 04/19/17 18:49 Dose: 2.5 mg Aripiprazole (Abilify) 10 mg PO HS NICKI PRN Reason: Protocol Stop: 06/16/17 20:59 Last Admin: 04/19/17 21:07 Dose: 10 mg Cyclobenzaprine HCl (Flexeril) 10 mg PO Q8HR PRN PRN Reason: Spasms Stop: 06/16/17 21:36 Last Admin: 04/20/17 02:52 Dose: 10 mg Docusate Sodium (Colace) 100 mg PO DAILY [facility] Stop: 06/17/17 08:59 Last Admin: 04/19/17 09:25 Dose: Not Given Duloxetine HCl (Cymbalta) 30 mg PO DAILY NICKI PRN Reason: Protocol Stop: 06/17/17 08:59 Last Admin: 04/19/17 09:25 Dose: Not Given Ferrous Sulfate (Iron) 325 mg PO DAILY [facility] Stop: 06/17/17 08:59 Last Admin: 04/19/17 09:25 Dose: Not Given Gabapentin (Neurontin) 300 mg PO TID [facility] Stop: 06/16/17 20:59 Last Admin: 04/19/17 21:07 Dose: 300 mg Dextrose/Sodium Chloride (D5-0.45ns) 1,000 mls @ 80 mls/hr IV .[id number] [facility] Stop: 06/16/17 20:14 Last Admin: 04/20/17 02:03 Dose: 80 mls/hr Ipratropium [place] (Atrovent Neb 0.5mg/2.5ml) 0.5 mg HHN Q2HRT PRN PRN Reason: Shortness of Breath or Wheeze Stop: 06/16/17 20:10 Last Admin: 04/19/17 18:48 Dose: 0.5 mg Lorazepam (Ativan) 0.5 mg PO Q4HR PRN; Protocol PRN Reason: Anxiety Stop: 06/18/17 11:58 Magnesium Hydroxide (Milk Of Magnesia) 30 ml PO DAILY PRN PRN Reason: Constipation Stop: 06/16/17 20:07 Nitroglycerin (Nitrostat) 0.4 mg SL Q5MIN PRN PRN Reason: Chest Pain Stop: 06/16/17 20:10 Ondansetron HCl (Zofran) 4 mg IV Q8H PRN PRN Reason: Nausea / Vomiting Stop: 06/16/17 20:10 Pantoprazole Sodium (Protonix) 40 mg PO BID [facility] Stop: 06/17/17 08:59 Last Admin: 04/19/17 17:41 Dose: 40 mg General: Alert HEENT: Atraumatic Neck: Supple Cardiovascular: Regular rate Lungs: Clear to auscultation Abdomen: Bowel sounds, Soft, no Tender, no Distended, no Mass, no Guarding Assessment/Plan - Assessment Assessment: # Anemia # Change in bowel habits EGD/colo on 04/19 showed hiatal hernia, esophagitis, possible barretts s/p biopsy , gastritis s/p biopsy, transverse colon polyp, and hemorrhoids. Hgb stable Plan: - f/u biopsy results. Treat H pylori if confirmed - if Barretts confirmed, will need appropriate surveillance EGD - next colonoscopy due 5 years - PPI - trend hgb, transfuse to keep > 7 - iron
--- NOTE | 2017-04-20 08:48 | Consultation ---
DATE OF CONSULTATION: 04/19/2017 PSYCHIATRIC CONSULTATION CHIEF COMPLAINT: "I am having hard time." HISTORY OF PRESENT ILLNESS: The patient is a 66-year-old male with multiple medical problems, was transferred from his retirement facility, admitted to the hospital with severe anemia, possible GI. The patient reports some anxiety and restlessness, but he has been cooperative with staff. The patient reports occasional episode of depression, has been taking Cymbalta at his retirement facility. The patient denies having wishes or suicidal thoughts. PAST PSYCHIATRIC HISTORY: Depression and anxiety. PAST MEDICAL HISTORY: As per H and P. PSYCHOSOCIAL HISTORY: The patient resides at [facility] and requires complete care. MENTAL STATUS EXAMINATION: Speech fluent, not pressured. Affect slightly anxious and depressed. No other visual hallucinations. No delusional thoughts. He is oriented to time, place and person. ASSESSMENT: Major depressive disorder, recurrent, moderate to severe. PLAN: We will continue Cymbalta 30 mg daily. Continue supportive measures and also the patient is on Abilify 10 mg p.o. at bedtime. Use Ativan 0.5 mg p.o. 6 hours p.r.n. anxiety. We will monitor condition closely. Thank you for the consultation. JOB# [id number]
[2017-04-20] MEDS: Pantoprazole 40 mg EC Tab PO SCH ×2 (08:52→16:40)
[2017-04-20] MEDS: Ferrous Sulfate 325 MG TAB PO SCH (08:52)
[2017-04-20] MEDS: Multivitamin w/ Minerals Tab PO SCH (08:52)
[2017-04-20] MEDS: Ipratropium Neb 0.5 mg/2.5 mL UD HHN PRN (13:28)
[2017-04-20] MEDS: Albuterol Nebulizer 2.5mg/3mL HHN PRN (13:28)
[2017-04-20] MEDS ORDERED: Potassium Chloride 20 mEq ER Tab PO ONE (14:10)
--- NOTE | 2017-04-20 14:10 | Internal Medicine Prog Note ---
Internal Medicine Subjective - Subjective Service Date: 04/20/17 Patient seen and examined:: with staff Patient is:: awake Per staff patient has:: tolerating meds Internal Medicine Objective - Results Result Diagrams: 04/20/17 04:45 04/20/17 04:45 Recent Labs: Laboratory Last Values WBC 8.4 Th/cmm (4.8-10.8) D 04/20/17 04:45 RBC 2.93 Mil/cmm (3.80-5.80) L 04/20/17 04:45 Hgb 7.8 gm/dL (12-16) L* 04/20/17 04:45 Hct 23.9 % (41.0-60) L 04/20/17 04:45 MCV 81.5 fl (80-99) 04/20/17 04:45 MCH 26.4 pg (27.0-31.0) L 04/20/17 04:45 MCHC Differential 32.4 pg (28.0-36.0) 04/20/17 04:45 RDW 16.3 % (11.5-20.0) 04/20/17 04:45 Plt Count 477 Th/cmm (150-400) H 04/20/17 04:45 MPV 8.3 fl 04/20/17 04:45 Neutrophils % 63.0 % (40.0-80.0) 04/20/17 04:45 Band Neutrophils % Not Reportable 04/19/17 04:50 Lymphocytes % 26.0 % (20.0-50.0) 04/20/17 04:45 Monocytes % 9.8 % (2.0-10.0) 04/20/17 04:45 Eosinophils % 1.1 % (0.0-5.0) 04/20/17 04:45 Basophils % 0.1 % (0.0-2.0) 04/20/17 04:45 Neutrophils (Manual) 47 % (40-80) 04/19/17 04:50 Lymphocytes 44 % (20-50) 04/19/17 04:50 Monocytes 7 % (2-10) 04/19/17 04:50 Eosinophils 2 % (0-5) 04/19/17 04:50 Total Retics Counted 0.6 % (0.5-1.5) 04/18/17 04:50 Absolute Retic 17.5 Th/cmm 04/18/17 04:50 Corrected Retic Count 0.3 % (0.5-1.5) L 04/18/17 04:50 PT 10.5 SECONDS (9.5-11.5) 04/19/17 04:50 INR 1.01 (0.5-1.4) 04/19/17 04:50 PTT (Actin FS) 25.5 SECONDS (26.0-38.0) L 04/19/17 04:50 Sodium 136 mEq/L (136-145) 04/20/17 04:45 Potassium 3.2 mEq/L (3.5-5.1) L 04/20/17 04:45 Chloride 109 mEq/L (98-107) H 04/20/17 04:45 Carbon Dioxide 26.8 mEq/L (21.0-31.0) 04/20/17 04:45 Anion Gap 3.4 (7.0-16.0) L 04/20/17 04:45 BUN 14 mg/dL (7-25) 04/20/17 04:45 Creatinine 0.8 mg/dL (0.7-1.3) 04/20/17 04:45 Est GFR ( Amer) > 60.0 ml/min (>90) 04/20/17 04:45 Est GFR (Non-Af Amer) > 60.0 ml/min 04/20/17 04:45 BUN/Creatinine Ratio 17.5 04/20/17 04:45 Glucose 132 mg/dL (70-105) H 04/20/17 04:45 POC Glucose 99 MG/DL (70 - 105) 04/19/17 12:03 Calcium 8.7 mg/dL (8.6-10.3) 04/20/17 04:45 Total Bilirubin 0.2 mg/dL (0.3-1.0) L 04/19/17 04:50 AST 18 U/L (13-39) 04/19/17 04:50 ALT 13 U/L (7-52) 04/19/17 04:50 Alkaline Phosphatase 51 U/L (34-104) 04/19/17 04:50 Ammonia 44 umol/L (16-53) 04/18/17 04:50 Creatine Kinase 104 U/L (30-223) 04/17/17 18:59 Troponin I < 0.01 ng/mL (0.01-0.05) L 04/17/17 18:59 B-Natriuretic Peptide 143.0 pg/mL (5.0-100.0) H 04/17/17 18:59 Total Protein 5.7 gm/dL (6.0-8.3) L 04/19/17 04:50 Albumin 3.0 gm/dL (4.2-5.5) L 04/19/17 04:50 Globulin 2.7 gm/dL 04/19/17 04:50 Albumin/Globulin Ratio 1.1 (1.0-1.8) 04/19/17 04:50 Triglycerides 85 mg/dL (<150) 04/17/17 18:59 Cholesterol 111 mg/dL (<200) 04/17/17 18:59 LDL Cholesterol Direct 67 mg/dL (75-193) L 04/17/17 18:59 HDL Cholesterol 47 mg/dL (23-92) 04/17/17 18:59 TSH 1.79 uIU/ml (0.34-5.60) 04/18/17 04:50 Stool Occult Blood NEGATIVE (NEGATIVE) 04/19/17 02:45 Helicobacter pylori Ab NEGATIVE (NEGATIVE) 04/19/17 13:42 - Physical Exam Vitals and I&O: Vital Signs Temp 97.7 F 04/20/17 12:00 Pulse 91 04/20/17 13:31 Resp 14 04/20/17 13:31 BP 116/72 04/20/17 12:00 Pulse Ox 98 04/20/17 13:31 Intake & Output 04/19/1718 18 18:59 06:59 18:59 Intake Total 501.333 932 Balance 501.333 932 Intake: Intake, IV Amount 501.333 932 D5-0.45NS 1,000 ml @ 80 501.333 932 mls/hr IV .[id number] [facility] Rx #:[id number] Other: Stool Characteristics Soft Liquid Brown Active Medications: Current Medications Acetaminophen (Tylenol) 650 mg PO BID [facility] Stop: 06/17/17 08:59 Last Admin: 04/20/17 08:50 Dose: 650 mg Acetaminophen (Tylenol) 650 mg PO Q4H PRN PRN Reason: Pain Or Fever above 101 Stop: 06/16/17 20:10 Acetaminophen/Hydrocodone Bitart ([place] 5mg/325mg) 1 tab PO Q8H PRN PRN Reason: Pain (Severe) Stop: 06/16/17 21:36 Last Admin: 04/20/17 07:42 Dose: 1 tab Al Hydrox/Mg Hydrox/Simethicone (Maalox) 30 ml PO Q6H PRN PRN Reason: Dyspepsia Stop: 06/16/17 20:10 Albuterol Sulfate (Albuterol 2.5mg/3ml Neb Ud) 2.5 mg HHN Q2HRT PRN PRN Reason: Shortness of Breath or Wheeze Stop: 06/16/17 20:10 Last Admin: 04/20/17 13:28 Dose: 2.5 mg Aripiprazole (Abilify) 10 mg PO HS NICKI PRN Reason: Protocol Stop: 06/16/17 20:59 Last Admin: 04/19/17 21:07 Dose: 10 mg Cyclobenzaprine HCl (Flexeril) 10 mg PO Q8HR PRN PRN Reason: Spasms Stop: 06/16/17 21:36 Last Admin: 04/20/17 10:59 Dose: 10 mg Docusate Sodium (Colace) 100 mg PO DAILY [facility] Stop: 06/17/17 08:59 Last Admin: 04/20/17 08:52 Dose: 100 mg Duloxetine HCl (Cymbalta) 30 mg PO DAILY NICKI PRN Reason: Protocol Stop: 06/17/17 08:59 Last Admin: 04/20/17 08:52 Dose: 30 mg Ferrous Sulfate (Iron) 325 mg PO DAILY [facility] Stop: 06/17/17 08:59 Last Admin: 04/20/17 08:52 Dose: 325 mg Gabapentin (Neurontin) 300 mg PO TID [facility] Stop: 06/16/17 20:59 Last Admin: 04/20/17 13:18 Dose: 300 mg Dextrose/Sodium Chloride (D5-0.45ns) 1,000 mls @ 80 mls/hr IV .[id number] [facility] Stop: 06/16/17 20:14 Last Admin: 04/20/17 02:03 Dose: 80 mls/hr Ipratropium [place] (Atrovent Neb 0.5mg/2.5ml) 0.5 mg HHN Q2HRT PRN PRN Reason: Shortness of Breath or Wheeze Stop: 06/16/17 20:10 Last Admin: 04/20/17 13:28 Dose: 0.5 mg Lorazepam (Ativan) 0.5 mg PO Q4HR PRN; Protocol PRN Reason: Anxiety Stop: 06/18/17 11:58 Magnesium Hydroxide (Milk Of Magnesia) 30 ml PO DAILY PRN PRN Reason: Constipation Stop: 06/16/17 20:07 Nitroglycerin (Nitrostat) 0.4 mg SL Q5MIN PRN PRN Reason: Chest Pain Stop: 06/16/17 20:10 Ondansetron HCl (Zofran) 4 mg IV Q8H PRN PRN Reason: Nausea / Vomiting Stop: 06/16/17 20:10 Pantoprazole Sodium (Protonix) 40 mg PO BID NICKI Stop: 06/17/17 08:59 Last Admin: 04/20/17 08:52 Dose: 40 mg General: alert HEENT: NC/AT, PERRLA Neck: Supple Lungs: CTAB Cardiovascular: RRR, Normal S1, Normal S2, without murmur Abdomen: soft, non-tender, non-distended, positive bowel sound Neurological: alert Internal Medicine Assmt/Plan - Assessment Assessment: severe anemia possible gi bleed dyslipidemia gerd dementia cirrhosis hepatitis c left shoulder pain - Plan Plan: monitor h/h cbc/bmp in am continue ivf for hydration continue current orders
--- NOTE | 2017-04-21 01:01 | Progress Notes ---
DATE: 04/20/2017 CHIEF COMPLAINT: "I am little bit more depressed." SUBJECTIVE: I met this patient. He reports some anxiety and depression, but he has been taking his medication. Reports fair sleep. The patient has no suicidal thoughts. MENTAL STATUS EXAM: Speech is fluent. The patient is oriented to time, place and person. The patient is slightly guarded. His affect is still depressed. PLAN: We will continue supportive measures. Continue to monitor closely. Continue Abilify 10 mg p.o. at bedtime, increase Cymbalta to 60 mg daily, and the patient is in agreement. JOB# [id number]
[2017-04-21] MEDS: Hydrocodone/APAP 5mg/325mg Tab PO PRN ×3 (02:58→20:08)
[2017-04-21 04:57] LABS: % BASOPHILS 0.3 % (0.0-2.0); % EOSINOPHILS 1.4 % (0.0-5.0); % LYMPHOCYTES 23.9 % (20.0-50.0); % MONOCYTES 12.3 % (2.0-10.0); % NEUTROPHILS 62.1 % (40.0-80.0); EOSINOPHILE ABSOLUTE 0.1 Th/cmm (0.1-0.4); LYMPHOCYTE ABSOLUTE 1.8 Th/cmm (1.5-3.0); MEAN CELL VOLUME 80.6 fl (80-99); MEAN CORPUSCULAR HEMOGLOBIN 26.1 pg (27.0-31.0); MEAN CORPUSCULAR HGB CONC 32.4 pg (28.0-36.0); MONOCYTE ABSOLUTE 0.9 Th/cmm (0.3-1.0); NEUTROPHILE ABSOLUTE 4.7 Th/cmm (1.8-8.0); PLATELET COUNT 468 Th/cmm (150-400); RED BLOOD COUNT 3.02 Mil/cmm (3.80-5.80); RED CELL DISTRIBUTION WIDTH 15.8 % (11.5-20.0); WHITE BLOOD COUNT 7.5 Th/cmm (4.8-10.8)
[2017-04-21 05:14] LABS: BUN - UREA NITROGEN 11 mg/dL (7-25); CALCIUM SERUM 8.6 mg/dL (8.6-10.3); CARBON DIOXIDE 27.4 mEq/L (21.0-31.0); CHLORIDE 105 mEq/L (98-107); CREATININE - SERUM 0.6 mg/dL (0.7-1.3); GFR AFRICAN-AMERICAN > 60.0 ml/min (>90); GFR NON AFRICAN-AMERICAN > 60.0 ml/min; GLUCOSE 105 mg/dL (70-105); POTASSIUM SERUM 3.4 mEq/L (3.5-5.1); SODIUM SERUM 136 mEq/L (136-145)
[2017-04-21 06:36] LABS: HEMATOCRIT 24.3 % (41.0-60); HEMOGLOBIN 7.9 gm/dL (12-16)
[2017-04-21] MEDS: D5-0.45NS 1,000 ML IV SCH ×2 (06:46→16:38)
[2017-04-21] MEDS: Multivitamin w/ Minerals Tab PO SCH (08:29)
[2017-04-21] MEDS: Ferrous Sulfate 325 MG TAB PO SCH (08:29)
[2017-04-21] MEDS: Pantoprazole 40 mg EC Tab PO SCH ×2 (08:29→16:35)
--- NOTE | 2017-04-21 08:38 | GI Progress Note ---
Subjective - Review of Systems Service Date: 04/21/17 Subjective: No abdominal pain, no bleeding Objective - Results Result Diagrams: 04/21/17 04:45 04/21/17 04:45 Recent Labs: Laboratory Last Values WBC 7.5 Th/cmm (4.8-10.8) 04/21/17 04:45 RBC 3.02 Mil/cmm (3.80-5.80) L 04/21/17 04:45 Hgb 7.9 gm/dL (12-16) L* 04/21/17 04:45 Hct 24.3 % (41.0-60) L 04/21/17 04:45 MCV 80.6 fl (80-99) 04/21/17 04:45 MCH 26.1 pg (27.0-31.0) L 04/21/17 04:45 MCHC Differential 32.4 pg (28.0-36.0) 04/21/17 04:45 RDW 15.8 % (11.5-20.0) 04/21/17 04:45 Plt Count 468 Th/cmm (150-400) H 04/21/17 04:45 MPV 7.0 fl 04/21/17 04:45 Neutrophils % 62.1 % (40.0-80.0) 04/21/17 04:45 Band Neutrophils % Not Reportable 04/19/17 04:50 Lymphocytes % 23.9 % (20.0-50.0) 04/21/17 04:45 Monocytes % 12.3 % (2.0-10.0) H 04/21/17 04:45 Eosinophils % 1.4 % (0.0-5.0) 04/21/17 04:45 Basophils % 0.3 % (0.0-2.0) 04/21/17 04:45 Neutrophils (Manual) 47 % (40-80) 04/19/17 04:50 Lymphocytes 44 % (20-50) 04/19/17 04:50 Monocytes 7 % (2-10) 04/19/17 04:50 Eosinophils 2 % (0-5) 04/19/17 04:50 Total Retics Counted 0.6 % (0.5-1.5) 04/18/17 04:50 Absolute Retic 17.5 Th/cmm 04/18/17 04:50 Corrected Retic Count 0.3 % (0.5-1.5) L 04/18/17 04:50 PT 10.5 SECONDS (9.5-11.5) 04/19/17 04:50 INR 1.01 (0.5-1.4) 04/19/17 04:50 PTT (Actin FS) 25.5 SECONDS (26.0-38.0) L 04/19/17 04:50 Sodium 136 mEq/L (136-145) 04/21/17 04:45 Potassium 3.4 mEq/L (3.5-5.1) L 04/21/17 04:45 Chloride 105 mEq/L (98-107) 04/21/17 04:45 Carbon Dioxide 27.4 mEq/L (21.0-31.0) 04/21/17 04:45 Anion Gap 7.0 (7.0-16.0) 04/21/17 04:45 BUN 11 mg/dL (7-25) 04/21/17 04:45 Creatinine 0.6 mg/dL (0.7-1.3) L 04/21/17 04:45 Est GFR ( Amer) > 60.0 ml/min (>90) 04/21/17 04:45 Est GFR (Non-Af Amer) > 60.0 ml/min 04/21/17 04:45 BUN/Creatinine Ratio 18.3 04/21/17 04:45 Glucose 105 mg/dL (70-105) 04/21/17 04:45 POC Glucose 99 MG/DL (70 - 105) 04/19/17 12:03 Calcium 8.6 mg/dL (8.6-10.3) 04/21/17 04:45 Total Bilirubin 0.2 mg/dL (0.3-1.0) L 04/19/17 04:50 AST 18 U/L (13-39) 04/19/17 04:50 ALT 13 U/L (7-52) 04/19/17 04:50 Alkaline Phosphatase 51 U/L (34-104) 04/19/17 04:50 Ammonia 44 umol/L (16-53) 04/18/17 04:50 Creatine Kinase 104 U/L (30-223) 04/17/17 18:59 Troponin I < 0.01 ng/mL (0.01-0.05) L 04/17/17 18:59 B-Natriuretic Peptide 143.0 pg/mL (5.0-100.0) H 04/17/17 18:59 Total Protein 5.7 gm/dL (6.0-8.3) L 04/19/17 04:50 Albumin 3.0 gm/dL (4.2-5.5) L 04/19/17 04:50 Globulin 2.7 gm/dL 04/19/17 04:50 Albumin/Globulin Ratio 1.1 (1.0-1.8) 04/19/17 04:50 Triglycerides 85 mg/dL (<150) 04/17/17 18:59 Cholesterol 111 mg/dL (<200) 04/17/17 18:59 LDL Cholesterol Direct 67 mg/dL (75-193) L 04/17/17 18:59 HDL Cholesterol 47 mg/dL (23-92) 04/17/17 18:59 TSH 1.79 uIU/ml (0.34-5.60) 04/18/17 04:50 Stool Occult Blood NEGATIVE (NEGATIVE) 04/21/17 00:05 Helicobacter pylori Ab NEGATIVE (NEGATIVE) 04/19/17 13:42 - Physical Exam Vitals and I&O: Vital Signs Temp 97.9 F 04/21/17 04:00 Pulse 71 04/21/17 08:11 Resp 14 04/21/17 08:11 BP 116/68 04/21/17 04:00 Pulse Ox 98 04/21/17 08:11 Intake & Output 04/20/1718 04/21/17 18:59 06:59 18:59 Intake Total 1850 1000 Balance 1850 1000 Weight (lbs) 67.449 kg 68.719 kg Intake: Intake, IV Amount 1000 1000 D5-0.45NS 1,000 ml @ 80 1000 1000 mls/hr IV .[id number] [facility] Rx #:[id number] Oral 850 Other: # Voids 3 Active Medications: Current Medications Acetaminophen (Tylenol) 650 mg PO BID [facility] Stop: 06/17/17 08:59 Last Admin: 04/21/17 08:30 Dose: 650 mg Acetaminophen (Tylenol) 650 mg PO Q4H PRN PRN Reason: Pain Or Fever above 101 Stop: 06/16/17 20:10 Acetaminophen/Hydrocodone Bitart ([place] 5mg/325mg) 1 tab PO Q8H PRN PRN Reason: Pain (Severe) Stop: 06/16/17 21:36 Last Admin: 04/21/17 02:58 Dose: 1 tab Al Hydrox/Mg Hydrox/Simethicone (Maalox) 30 ml PO Q6H PRN PRN Reason: Dyspepsia Stop: 06/16/17 20:10 Albuterol Sulfate (Albuterol 2.5mg/3ml Neb Ud) 2.5 mg HHN Q2HRT PRN PRN Reason: Shortness of Breath or Wheeze Stop: 06/16/17 20:10 Last Admin: 04/20/17 13:28 Dose: 2.5 mg Aripiprazole (Abilify) 10 mg PO HS [facility] PRN Reason: Protocol Stop: 06/16/17 20:59 Last Admin: 04/20/17 20:15 Dose: 10 mg Cyclobenzaprine HCl (Flexeril) 10 mg PO Q8HR PRN PRN Reason: Spasms Stop: 06/16/17 21:36 Last Admin: 04/20/17 21:47 Dose: 10 mg Docusate Sodium (Colace) 100 mg PO DAILY [facility] Stop: 06/17/17 08:59 Last Admin: 04/21/17 08:28 Dose: 100 mg Duloxetine HCl (Cymbalta) 30 mg PO DAILY [facility] PRN Reason: Protocol Stop: 06/17/17 08:59 Last Admin: 04/21/17 08:28 Dose: 30 mg Ferrous Sulfate (Iron) 325 mg PO DAILY [facility] Stop: 06/17/17 08:59 Last Admin: 04/21/17 08:29 Dose: 325 mg Gabapentin (Neurontin) 300 mg PO TID [facility] Stop: 06/16/17 20:59 Last Admin: 04/21/17 08:29 Dose: 300 mg Dextrose/Sodium Chloride (D5-0.45ns) 1,000 mls @ 80 mls/hr IV .[id number] [facility] Stop: 06/16/17 20:14 Last Admin: 04/21/17 06:46 Dose: 80 mls/hr Ipratropium [place] (Atrovent Neb 0.5mg/2.5ml) 0.5 mg HHN Q2HRT PRN PRN Reason: Shortness of Breath or Wheeze Stop: 06/16/17 20:10 Last Admin: 04/20/17 13:28 Dose: 0.5 mg Lorazepam (Ativan) 0.5 mg PO Q4HR PRN; Protocol PRN Reason: Anxiety Stop: 06/18/17 11:58 Magnesium Hydroxide (Milk Of Magnesia) 30 ml PO DAILY PRN PRN Reason: Constipation Stop: 06/16/17 20:07 Nitroglycerin (Nitrostat) 0.4 mg SL Q5MIN PRN PRN Reason: Chest Pain Stop: 06/16/17 20:10 Ondansetron HCl (Zofran) 4 mg IV Q8H PRN PRN Reason: Nausea / Vomiting Stop: 06/16/17 20:10 Pantoprazole Sodium (Protonix) 40 mg PO BID [facility] Stop: 06/17/17 08:59 Last Admin: 04/21/17 08:29 Dose: 40 mg General: Alert HEENT: Atraumatic Neck: Supple Cardiovascular: Regular rate Lungs: Clear to auscultation Abdomen: Bowel sounds, Soft, no Tender, no Distended, no Mass, no Guarding Assessment/Plan - Assessment Assessment: # Anemia # Change in bowel habits EGD/colo on 04/19 showed hiatal hernia, esophagitis, possible barretts s/p biopsy , gastritis s/p biopsy, transverse colon polyp, and hemorrhoids. Hgb stable, no further overt GI bleeding Plan: - f/u biopsy results. Treat H pylori if confirmed - if Barretts confirmed, will need appropriate surveillance EGD - next colonoscopy due 5 years - PPI - trend hgb, transfuse to keep > 7 - iron
[2017-04-21] MEDS ORDERED: Potassium Chloride 20 mEq ER Tab PO ONE (13:47)
--- NOTE | 2017-04-21 13:47 | Internal Medicine Prog Note ---
Internal Medicine Subjective - Subjective Service Date: 04/21/17 Patient seen and examined:: with staff Patient is:: awake Per staff patient has:: tolerating meds Internal Medicine Objective - Results Result Diagrams: 04/21/17 04:45 04/21/17 04:45 Recent Labs: Laboratory Last Values WBC 7.5 Th/cmm (4.8-10.8) 04/21/17 04:45 RBC 3.02 Mil/cmm (3.80-5.80) L 04/21/17 04:45 Hgb 7.9 gm/dL (12-16) L* 04/21/17 04:45 Hct 24.3 % (41.0-60) L 04/21/17 04:45 MCV 80.6 fl (80-99) 04/21/17 04:45 MCH 26.1 pg (27.0-31.0) L 04/21/17 04:45 MCHC Differential 32.4 pg (28.0-36.0) 04/21/17 04:45 RDW 15.8 % (11.5-20.0) 04/21/17 04:45 Plt Count 468 Th/cmm (150-400) H 04/21/17 04:45 MPV 7.0 fl 04/21/17 04:45 Neutrophils % 62.1 % (40.0-80.0) 04/21/17 04:45 Band Neutrophils % Not Reportable 04/19/17 04:50 Lymphocytes % 23.9 % (20.0-50.0) 04/21/17 04:45 Monocytes % 12.3 % (2.0-10.0) H 04/21/17 04:45 Eosinophils % 1.4 % (0.0-5.0) 04/21/17 04:45 Basophils % 0.3 % (0.0-2.0) 04/21/17 04:45 Neutrophils (Manual) 47 % (40-80) 04/19/17 04:50 Lymphocytes 44 % (20-50) 04/19/17 04:50 Monocytes 7 % (2-10) 04/19/17 04:50 Eosinophils 2 % (0-5) 04/19/17 04:50 Total Retics Counted 0.6 % (0.5-1.5) 04/18/17 04:50 Absolute Retic 17.5 Th/cmm 04/18/17 04:50 Corrected Retic Count 0.3 % (0.5-1.5) L 04/18/17 04:50 PT 10.5 SECONDS (9.5-11.5) 04/19/17 04:50 INR 1.01 (0.5-1.4) 04/19/17 04:50 PTT (Actin FS) 25.5 SECONDS (26.0-38.0) L 04/19/17 04:50 Sodium 136 mEq/L (136-145) 04/21/17 04:45 Potassium 3.4 mEq/L (3.5-5.1) L 04/21/17 04:45 Chloride 105 mEq/L (98-107) 04/21/17 04:45 Carbon Dioxide 27.4 mEq/L (21.0-31.0) 04/21/17 04:45 Anion Gap 7.0 (7.0-16.0) 04/21/17 04:45 BUN 11 mg/dL (7-25) 04/21/17 04:45 Creatinine 0.6 mg/dL (0.7-1.3) L 04/21/17 04:45 Est GFR ( Amer) > 60.0 ml/min (>90) 04/21/17 04:45 Est GFR (Non-Af Amer) > 60.0 ml/min 04/21/17 04:45 BUN/Creatinine Ratio 18.3 04/21/17 04:45 Glucose 105 mg/dL (70-105) 04/21/17 04:45 POC Glucose 99 MG/DL (70 - 105) 04/19/17 12:03 Calcium 8.6 mg/dL (8.6-10.3) 04/21/17 04:45 Total Bilirubin 0.2 mg/dL (0.3-1.0) L 04/19/17 04:50 AST 18 U/L (13-39) 04/19/17 04:50 ALT 13 U/L (7-52) 04/19/17 04:50 Alkaline Phosphatase 51 U/L (34-104) 04/19/17 04:50 Ammonia 44 umol/L (16-53) 04/18/17 04:50 Creatine Kinase 104 U/L (30-223) 04/17/17 18:59 Troponin I < 0.01 ng/mL (0.01-0.05) L 04/17/17 18:59 B-Natriuretic Peptide 143.0 pg/mL (5.0-100.0) H 04/17/17 18:59 Total Protein 5.7 gm/dL (6.0-8.3) L 04/19/17 04:50 Albumin 3.0 gm/dL (4.2-5.5) L 04/19/17 04:50 Globulin 2.7 gm/dL 04/19/17 04:50 Albumin/Globulin Ratio 1.1 (1.0-1.8) 04/19/17 04:50 Triglycerides 85 mg/dL (<150) 04/17/17 18:59 Cholesterol 111 mg/dL (<200) 04/17/17 18:59 LDL Cholesterol Direct 67 mg/dL (75-193) L 04/17/17 18:59 HDL Cholesterol 47 mg/dL (23-92) 04/17/17 18:59 TSH 1.79 uIU/ml (0.34-5.60) 04/18/17 04:50 Stool Occult Blood NEGATIVE (NEGATIVE) 04/21/17 00:05 Helicobacter pylori Ab NEGATIVE (NEGATIVE) 04/19/17 13:42 - Physical Exam Vitals and I&O: Vital Signs Temp 98.5 F 04/21/17 12:00 Pulse 73 04/21/17 12:00 Resp 18 04/21/17 12:00 BP 124/74 04/21/17 12:00 Pulse Ox 98 04/21/17 12:00 Intake & Output 18 18 18 18:59 06:59 18:59 Intake Total 1850 1000 Balance 1850 1000 Weight (lbs) 148 lb 11.2 oz 151 lb 8 oz Intake: Intake, IV Amount 1000 1000 D5-0.45NS 1,000 ml @ 80 1000 1000 mls/hr IV .[id number] [facility] Rx #:[id number] Oral 850 Other: # Voids 3 Active Medications: Current Medications Acetaminophen (Tylenol) 650 mg PO BID [facility] Stop: 06/17/17 08:59 Last Admin: 04/21/17 08:30 Dose: 650 mg Acetaminophen (Tylenol) 650 mg PO Q4H PRN PRN Reason: Pain Or Fever above 101 Stop: 06/16/17 20:10 Acetaminophen/Hydrocodone Bitart ([place] 5mg/325mg) 1 tab PO Q8H PRN PRN Reason: Pain (Severe) Stop: 06/16/17 21:36 Last Admin: 04/21/17 11:25 Dose: 1 tab Al Hydrox/Mg Hydrox/Simethicone (Maalox) 30 ml PO Q6H PRN PRN Reason: Dyspepsia Stop: 06/16/17 20:10 Albuterol Sulfate (Albuterol 2.5mg/3ml Neb Ud) 2.5 mg HHN Q2HRT PRN PRN Reason: Shortness of Breath or Wheeze Stop: 06/16/17 20:10 Last Admin: 04/20/17 13:28 Dose: 2.5 mg Aripiprazole (Abilify) 10 mg PO HS [facility] PRN Reason: Protocol Stop: 06/16/17 20:59 Last Admin: 04/20/17 20:15 Dose: 10 mg Cyclobenzaprine HCl (Flexeril) 10 mg PO Q8HR PRN PRN Reason: Spasms Stop: 06/16/17 21:36 Last Admin: 04/21/17 08:38 Dose: 10 mg Docusate Sodium (Colace) 100 mg PO DAILY [facility] Stop: 06/17/17 08:59 Last Admin: 04/21/17 08:28 Dose: 100 mg Duloxetine HCl (Cymbalta) 30 mg PO DAILY [facility] PRN Reason: Protocol Stop: 06/17/17 08:59 Last Admin: 04/21/17 08:28 Dose: 30 mg Ferrous Sulfate (Iron) 325 mg PO DAILY [facility] Stop: 06/17/17 08:59 Last Admin: 04/21/17 08:29 Dose: 325 mg Gabapentin (Neurontin) 300 mg PO TID [facility] Stop: 06/16/17 20:59 Last Admin: 04/21/17 08:29 Dose: 300 mg Dextrose/Sodium Chloride (D5-0.45ns) 1,000 mls @ 80 mls/hr IV .[id number] [facility] Stop: 06/16/17 20:14 Last Admin: 04/21/17 06:46 Dose: 80 mls/hr Ipratropium [place] (Atrovent Neb 0.5mg/2.5ml) 0.5 mg HHN Q2HRT PRN PRN Reason: Shortness of Breath or Wheeze Stop: 06/16/17 20:10 Last Admin: 04/20/17 13:28 Dose: 0.5 mg Lorazepam (Ativan) 0.5 mg PO Q4HR PRN; Protocol PRN Reason: Anxiety Stop: 06/18/17 11:58 Magnesium Hydroxide (Milk Of Magnesia) 30 ml PO DAILY PRN PRN Reason: Constipation Stop: 06/16/17 20:07 Nitroglycerin (Nitrostat) 0.4 mg SL Q5MIN PRN PRN Reason: Chest Pain Stop: 06/16/17 20:10 Ondansetron HCl (Zofran) 4 mg IV Q8H PRN PRN Reason: Nausea / Vomiting Stop: 06/16/17 20:10 Pantoprazole Sodium (Protonix) 40 mg PO BID [facility] Stop: 06/17/17 08:59 Last Admin: 04/21/17 08:29 Dose: 40 mg Zolpidem Tartrate (Ambien) 5 mg PO HS PRN PRN Reason: Insomnia Stop: 06/20/17 11:37 General: alert HEENT: NC/AT, PERRLA Neck: Supple Lungs: CTAB Cardiovascular: RRR, Normal S1, Normal S2, without murmur Abdomen: soft, non-tender, non-distended, positive bowel sound Neurological: alert Internal Medicine Assmt/Plan - Assessment Assessment: severe anemia possible gi bleed dyslipidemia gerd dementia cirrhosis hepatitis c left shoulder pain - Plan Plan: monitor h/h cbc/bmp in am continue ivf for hydration continue current orders
[2017-04-21 14:09] LABS: FERRITIN 9 ng/mL (30-400); HAPTOGLOBIN 161 mg/dL (34-200); IRON LC 12 ug/dL (38-169); TIBC (LC) 357 ug/dL (250-450); UIBC 345 ug/dL (111-343)
[2017-04-21] MEDS: Ipratropium Neb 0.5 mg/2.5 mL UD HHN PRN (15:14)
[2017-04-21] MEDS: Albuterol Nebulizer 2.5mg/3mL HHN PRN (15:14)
--- NOTE | 2017-04-21 20:16 | Progress Notes ---
DATE: 04/21/2017 SUBJECTIVE: I met this patient, discussed with staff, reports less anxiety, but still having trouble sleeping at night time. The patient still with episodes of depression, no suicidal thoughts. He is oriented x 3. ASSESSMENT: We will continue Abilify and Cymbalta. PLAN: We will add Ambien 5 mg p.o. at bedtime p.r.n. Monitor closely. [facility]# [id number]
[2017-04-22] MEDS: Hydrocodone/APAP 5mg/325mg Tab PO PRN ×3 (02:56→13:03)
[2017-04-22] MEDS: D5-0.45NS 1,000 ML IV SCH ×2 (02:57→13:39)
[2017-04-22 05:43] LABS: % EOSINOPHILS 1.3 % (0.0-5.0); % MONOCYTES 10.3 % (2.0-10.0); EOSINOPHILE ABSOLUTE 0.1 Th/cmm (0.1-0.4); LYMPHOCYTE ABSOLUTE 1.6 Th/cmm (1.5-3.0); MONOCYTE ABSOLUTE 0.9 Th/cmm (0.3-1.0); NEUTROPHILE ABSOLUTE 6.3 Th/cmm (1.8-8.0); WHITE BLOOD COUNT 8.9 Th/cmm (4.8-10.8)
[2017-04-22 05:58] LABS: % BASOPHILS 0.1 % (0.0-2.0); % NEUTROPHILS 70.3 % (40.0-80.0); MEAN CELL VOLUME 80.2 fl (80-99); MEAN CORPUSCULAR HEMOGLOBIN 26.2 pg (27.0-31.0); MEAN CORPUSCULAR HGB CONC 32.7 pg (28.0-36.0); MEAN PLATELET VOLUME 7.6 fl; PLATELET COUNT 444 Th/cmm (150-400); RED BLOOD COUNT 2.96 Mil/cmm (3.80-5.80); RED CELL DISTRIBUTION WIDTH 16.5 % (11.5-20.0)
[2017-04-22 05:59] LABS: ANION GAP 8.8 (7.0-16.0); BUN - UREA NITROGEN 11 mg/dL (7-25); CALCIUM SERUM 8.8 mg/dL (8.6-10.3); CARBON DIOXIDE 27.8 mEq/L (21.0-31.0); CHLORIDE 106 mEq/L (98-107); CREATININE - SERUM 0.7 mg/dL (0.7-1.3); GFR AFRICAN-AMERICAN > 60.0 ml/min (>90); GFR NON AFRICAN-AMERICAN > 60.0 ml/min; GLUCOSE 99 mg/dL (70-105); POTASSIUM SERUM 3.6 mEq/L (3.5-5.1); SODIUM SERUM 139 mEq/L (136-145)
[2017-04-22 06:05] LABS: HEMATOCRIT 23.7 % (41.0-60); HEMOGLOBIN 7.8 gm/dL (12-16)
[2017-04-22] MEDS: Multivitamin w/ Minerals Tab PO SCH (08:08)
[2017-04-22] MEDS: Ferrous Sulfate 325 MG TAB PO SCH (08:09)
[2017-04-22] MEDS: Pantoprazole 40 mg EC Tab PO SCH (08:09)
--- NOTE | 2017-04-22 11:41 | Internal Medicine Prog Note ---
Internal Medicine Subjective - Subjective Service Date: 04/22/17 Patient seen and examined:: with staff Patient is:: awake Per staff patient has:: tolerating meds Internal Medicine Objective - Results Result Diagrams: 04/22/17 05:10 04/22/17 05:10 Recent Labs: Laboratory Last Values WBC 8.9 Th/cmm (4.8-10.8) 04/22/17 05:10 RBC 2.96 Mil/cmm (3.80-5.80) L 04/22/17 05:10 Hgb 7.8 gm/dL (12-16) L* 04/22/17 05:10 Hct 23.7 % (41.0-60) L 04/22/17 05:10 MCV 80.2 fl (80-99) 04/22/17 05:10 MCH 26.2 pg (27.0-31.0) L 04/22/17 05:10 MCHC Differential 32.7 pg (28.0-36.0) 04/22/17 05:10 RDW 16.5 % (11.5-20.0) 04/22/17 05:10 Plt Count 444 Th/cmm (150-400) H 04/22/17 05:10 MPV 7.6 fl 04/22/17 05:10 Neutrophils % 70.3 % (40.0-80.0) 04/22/17 05:10 Band Neutrophils % Not Reportable 04/19/17 04:50 Lymphocytes % 18.0 % (20.0-50.0) L 04/22/17 05:10 Monocytes % 10.3 % (2.0-10.0) H 04/22/17 05:10 Eosinophils % 1.3 % (0.0-5.0) 04/22/17 05:10 Basophils % 0.1 % (0.0-2.0) 04/22/17 05:10 Neutrophils (Manual) 47 % (40-80) 04/19/17 04:50 Lymphocytes 44 % (20-50) 04/19/17 04:50 Monocytes 7 % (2-10) 04/19/17 04:50 Eosinophils 2 % (0-5) 04/19/17 04:50 Total Retics Counted 0.6 % (0.5-1.5) 04/18/17 04:50 Absolute Retic 17.5 Th/cmm 04/18/17 04:50 Corrected Retic Count 0.3 % (0.5-1.5) L 04/18/17 04:50 Haptoglobin 161 mg/dL (34-200) 04/18/17 04:50 PT 10.5 SECONDS (9.5-11.5) 04/19/17 04:50 INR 1.01 (0.5-1.4) 04/19/17 04:50 PTT (Actin FS) 25.5 SECONDS (26.0-38.0) L 04/19/17 04:50 Sodium 139 mEq/L (136-145) 04/22/17 05:10 Potassium 3.6 mEq/L (3.5-5.1) 04/22/17 05:10 Chloride 106 mEq/L (98-107) 04/22/17 05:10 Carbon Dioxide 27.8 mEq/L (21.0-31.0) 04/22/17 05:10 Anion Gap 8.8 (7.0-16.0) 04/22/17 05:10 BUN 11 mg/dL (7-25) 04/22/17 05:10 Creatinine 0.7 mg/dL (0.7-1.3) 04/22/17 05:10 Est GFR ( Amer) > 60.0 ml/min (>90) 04/22/17 05:10 Est GFR (Non-Af Amer) > 60.0 ml/min 04/22/17 05:10 BUN/Creatinine Ratio 15.7 04/22/17 05:10 Glucose 99 mg/dL (70-105) 04/22/17 05:10 POC Glucose 99 MG/DL (70 - 105) 04/19/17 12:03 Calcium 8.8 mg/dL (8.6-10.3) 04/22/17 05:10 Iron 12 ug/dL (38-169) L 04/18/17 04:50 TIBC 357 ug/dL (250-450) 04/18/17 04:50 Iron Saturation 3 % (15-55) L 04/18/17 04:50 Unsaturated IBC 345 ug/dL (111-343) H 04/18/17 04:50 Ferritin 9 ng/mL (30-400) L 04/18/17 04:50 Total Bilirubin 0.2 mg/dL (0.3-1.0) L 04/19/17 04:50 AST 18 U/L (13-39) 04/19/17 04:50 ALT 13 U/L (7-52) 04/19/17 04:50 Alkaline Phosphatase 51 U/L (34-104) 04/19/17 04:50 Ammonia 44 umol/L (16-53) 04/18/17 04:50 Creatine Kinase 104 U/L (30-223) 04/17/17 18:59 Troponin I < 0.01 ng/mL (0.01-0.05) L 04/17/17 18:59 B-Natriuretic Peptide 143.0 pg/mL (5.0-100.0) H 04/17/17 18:59 Total Protein 5.7 gm/dL (6.0-8.3) L 04/19/17 04:50 Albumin 3.0 gm/dL (4.2-5.5) L 04/19/17 04:50 Globulin 2.7 gm/dL 04/19/17 04:50 Albumin/Globulin Ratio 1.1 (1.0-1.8) 04/19/17 04:50 Triglycerides 85 mg/dL (<150) 04/17/17 18:59 Cholesterol 111 mg/dL (<200) 04/17/17 18:59 LDL Cholesterol Direct 67 mg/dL (75-193) L 04/17/17 18:59 HDL Cholesterol 47 mg/dL (23-92) 04/17/17 18:59 TSH 1.79 uIU/ml (0.34-5.60) 04/18/17 04:50 Stool Occult Blood NEGATIVE (NEGATIVE) 04/21/17 00:05 Helicobacter pylori Ab NEGATIVE (NEGATIVE) 04/19/17 13:42 - Physical Exam Vitals and I&O: Vital Signs Temp 97.9 F 04/22/17 08:00 Pulse 92 04/22/17 10:48 Resp 14 04/22/17 10:48 BP 124/72 04/22/17 08:00 Pulse Ox 98 04/22/17 10:48 Intake & Output 04/21/17 04/22/17 04/22/17 18:59 06:59 18:59 Intake Total 072.116 6101.333 Balance 826.091 4205.333 Weight (lbs) 151 lb 8 oz Intake: Intake, IV Amount 789.333 825.333 D5-0.45NS 1,000 ml @ 80 789.333 825.333 mls/hr IV .[id number] [facility] Rx #:[id number] Oral 1550 Other: # Voids 3 Active Medications: Current Medications Acetaminophen (Tylenol) 650 mg PO BID [facility] Stop: 06/17/17 08:59 Last Admin: 04/22/17 08:08 Dose: 650 mg Acetaminophen (Tylenol) 650 mg PO Q4H PRN PRN Reason: Pain Or Fever above 101 Stop: 06/16/17 20:10 Acetaminophen/Hydrocodone Bitart ([place] 5mg/325mg) 1 tab PO Q4H PRN PRN Reason: Pain (Severe) Stop: 06/20/17 15:16 Last Admin: 04/22/17 08:10 Dose: 1 tab Al Hydrox/Mg Hydrox/Simethicone (Maalox) 30 ml PO Q6H PRN PRN Reason: Dyspepsia Stop: 06/16/17 20:10 Albuterol Sulfate (Albuterol 2.5mg/3ml Neb Ud) 2.5 mg HHN Q2HRT PRN PRN Reason: Shortness of Breath or Wheeze Stop: 06/16/17 20:10 Last Admin: 04/21/17 15:14 Dose: 2.5 mg Aripiprazole (Abilify) 10 mg PO HS [facility] PRN Reason: Protocol Stop: 06/16/17 20:59 Last Admin: 04/21/17 21:55 Dose: 10 mg Cyclobenzaprine HCl (Flexeril) 10 mg PO Q8HR PRN PRN Reason: Spasms Stop: 06/16/17 21:36 Last Admin: 04/21/17 21:55 Dose: 10 mg Docusate Sodium (Colace) 100 mg PO DAILY [facility] Stop: 06/17/17 08:59 Last Admin: 04/22/17 08:09 Dose: 100 mg Duloxetine HCl (Cymbalta) 30 mg PO DAILY [facility] PRN Reason: Protocol Stop: 06/17/17 08:59 Last Admin: 04/22/17 08:08 Dose: 30 mg Ferrous Sulfate (Iron) 325 mg PO DAILY [facility] Stop: 06/17/17 08:59 Last Admin: 04/22/17 08:09 Dose: 325 mg Gabapentin (Neurontin) 300 mg PO TID [facility] Stop: 06/16/17 20:59 Last Admin: 04/22/17 08:08 Dose: 300 mg Dextrose/Sodium Chloride (D5-0.45ns) 1,000 mls @ 80 mls/hr IV .[id number] [facility] Stop: 06/16/17 20:14 Last Admin: 04/22/17 02:57 Dose: 80 mls/hr Ipratropium [place] (Atrovent Neb 0.5mg/2.5ml) 0.5 mg HHN Q2HRT PRN PRN Reason: Shortness of Breath or Wheeze Stop: 06/16/17 20:10 Last Admin: 04/21/17 15:14 Dose: 0.5 mg Lorazepam (Ativan) 0.5 mg PO Q4H PRN; Protocol PRN Reason: Anxiety Stop: 06/18/17 11:58 Magnesium Hydroxide (Milk Of Magnesia) 30 ml PO DAILY PRN PRN Reason: Constipation Stop: 06/16/17 20:07 Nitroglycerin (Nitrostat) 0.4 mg SL Q5MIN PRN PRN Reason: Chest Pain Stop: 06/16/17 20:10 Ondansetron HCl (Zofran) 4 mg IV Q8H PRN PRN Reason: Nausea / Vomiting Stop: 06/16/17 20:10 Pantoprazole Sodium (Protonix) 40 mg PO BID [facility] Stop: 06/17/17 08:59 Last Admin: 04/22/17 08:09 Dose: 40 mg Zolpidem Tartrate (Ambien) 5 mg PO HS PRN PRN Reason: Insomnia Stop: 06/20/17 11:37 Last Admin: 04/21/17 23:48 Dose: 5 mg General: alert HEENT: NC/AT, PERRLA Neck: Supple Lungs: CTAB Cardiovascular: RRR, Normal S1, Normal S2, without murmur Abdomen: soft, non-tender, non-distended, positive bowel sound Neurological: alert - Procedures Procedures: Procedures Procedure Code Date COLONOSCOPY W/LESION REMOVAL 84004 04/17/17 EGD BIOPSY SINGLE/MULTIPLE 48969 04/17/17 EXCISION OF ESOPHAGUS, ENDO, DIAGN [id number] 04/17/17 EXCISION OF STOMACH, ENDO, DIAGN [id number] 04/17/17 EXCISION OF TRANSVERSE COLON, ENDO [id number] 04/17/17 Internal Medicine Assmt/Plan - Assessment Assessment: severe anemia possible gi bleed dyslipidemia gerd dementia cirrhosis hepatitis c left shoulder pain - Plan Plan: dc planning in am monitor h/h cbc/bmp in am continue ivf for hydration continue current orders Nutritional Asmnt/Malnutr-PDOC - Dietary Evaluation Malnutrition Findings (Please click <Entered> for more info): Nutritional Asmnt/Malnutrition Start: 04/18/17 07: 43 Text: Status: Complete Freq: Document 04/22/17 09:07 [email or web address] (Rec: 04/22/17 09:19 [email or web address]) Nutritional Asmnt/Malnutrition Patient General Information Nutritional Screening Moderate Risk Diagnosis severe anemia, possible GI bleed Pertinent Medical Hx/Surgical Hx HLD, PUD, GERD, demential, cirrhosis, hep c Subjective Information Pt laying in bed. Reports good appetite. Is from SNF, trying to gain weight there, states weight got down to 120 lbs, now slowly gaining with double portions and drinking Ensure. On mechanical soft diet as SNF, which he dooes not care for. Is eating 100% of 2 gm Na diet without problems. Current Diet Order/ Nutrition Support 2 gm Na Patient / S.O Not Indicated Pertinent Medications colace, iron, MOM, protonix Pertinent Labs 04/22 WNL Nutritional Hx/Data Height 6 ft 2 in Height (Calculated Centimeters) 188.0 Current Weight (lbs) 151 lb 8 oz Weight (Calculated Kilograms) 68.7 Weight (Calculated Grams) 47974.2 [place] Body Weight 190 lbs % [place] Body Weight 80 Body Mass Index (BMI) 19.4 Recent Weight Change Yes Weight Status Approriate GI Symptoms GI Symptoms None Last BM 04/21 Difficult in: None Skin Integrity/Comment: intact, no edema noted Current %PO Good (75-100%) Estimated Nutritional Goals BEE in Kcals: Using Current wt Calories/Kcals/Kg 30-35 Kcals Calculated 0452-7803 Protein: Using Current wt Protein g/k-1.2 Protein Calculated 69-83 g Fluid: ml 5484-7577 mL (25-30 mL/kcal) Nutritional Problem 1. Problem Problem underweight Etiology cirrhosis, hep c, inadeuqate energy intake Signs/Symptoms: 80% IBW Malnutrition Alert Is there a minimum of two criteria No selected? Query Text:Check all the applicable criteria. A minimum of two criteria are recommended for diagnosis of either severe or non-severe malnutrition. Malnutrition Related to Morbid Obesity Malnutrition related to morbid obesity No Intervention/Recommendation Recommendations by RD Increase Calorie Intake Protein supplementation Comments 1. Change diet to 2 gm Na, double portions of protein and vegetables 2. Boost Plus TID with all meals for weight gain Expected Outcomes/Goals Expected Outcomes/Goals goal: PO intake >75%, wt gain to IBW monitor wt, labs, skin, PO intake
--- NOTE | 2017-04-22 14:47 | GI Progress Note ---
Subjective - Review of Systems Service Date: 04/22/17 Subjective: EVENTS NOTED. Objective - Results Result Diagrams: 04/22/17 05:10 04/22/17 05:10 Recent Labs: Laboratory Last Values WBC 8.9 Th/cmm (4.8-10.8) 04/22/17 05:10 RBC 2.96 Mil/cmm (3.80-5.80) L 04/22/17 05:10 Hgb 7.8 gm/dL (12-16) L* 04/22/17 05:10 Hct 23.7 % (41.0-60) L 04/22/17 05:10 MCV 80.2 fl (80-99) 04/22/17 05:10 MCH 26.2 pg (27.0-31.0) L 04/22/17 05:10 MCHC Differential 32.7 pg (28.0-36.0) 04/22/17 05:10 RDW 16.5 % (11.5-20.0) 04/22/17 05:10 Plt Count 444 Th/cmm (150-400) H 04/22/17 05:10 MPV 7.6 fl 04/22/17 05:10 Neutrophils % 70.3 % (40.0-80.0) 04/22/17 05:10 Band Neutrophils % Not Reportable 04/19/17 04:50 Lymphocytes % 18.0 % (20.0-50.0) L 04/22/17 05:10 Monocytes % 10.3 % (2.0-10.0) H 04/22/17 05:10 Eosinophils % 1.3 % (0.0-5.0) 04/22/17 05:10 Basophils % 0.1 % (0.0-2.0) 04/22/17 05:10 Neutrophils (Manual) 47 % (40-80) 04/19/17 04:50 Lymphocytes 44 % (20-50) 04/19/17 04:50 Monocytes 7 % (2-10) 04/19/17 04:50 Eosinophils 2 % (0-5) 04/19/17 04:50 Total Retics Counted 0.6 % (0.5-1.5) 04/18/17 04:50 Absolute Retic 17.5 Th/cmm 04/18/17 04:50 Corrected Retic Count 0.3 % (0.5-1.5) L 04/18/17 04:50 Haptoglobin 161 mg/dL (34-200) 04/18/17 04:50 PT 10.5 SECONDS (9.5-11.5) 04/19/17 04:50 INR 1.01 (0.5-1.4) 04/19/17 04:50 PTT (Actin FS) 25.5 SECONDS (26.0-38.0) L 04/19/17 04:50 Sodium 139 mEq/L (136-145) 04/22/17 05:10 Potassium 3.6 mEq/L (3.5-5.1) 04/22/17 05:10 Chloride 106 mEq/L (98-107) 04/22/17 05:10 Carbon Dioxide 27.8 mEq/L (21.0-31.0) 04/22/17 05:10 Anion Gap 8.8 (7.0-16.0) 04/22/17 05:10 BUN 11 mg/dL (7-25) 04/22/17 05:10 Creatinine 0.7 mg/dL (0.7-1.3) 04/22/17 05:10 Est GFR ( Amer) > 60.0 ml/min (>90) 04/22/17 05:10 Est GFR (Non-Af Amer) > 60.0 ml/min 04/22/17 05:10 BUN/Creatinine Ratio 15.7 04/22/17 05:10 Glucose 99 mg/dL (70-105) 04/22/17 05:10 POC Glucose 99 MG/DL (70 - 105) 04/19/17 12:03 Calcium 8.8 mg/dL (8.6-10.3) 04/22/17 05:10 Iron 12 ug/dL (38-169) L 04/18/17 04:50 TIBC 357 ug/dL (250-450) 04/18/17 04:50 Iron Saturation 3 % (15-55) L 04/18/17 04:50 Unsaturated IBC 345 ug/dL (111-343) H 04/18/17 04:50 Ferritin 9 ng/mL (30-400) L 04/18/17 04:50 Total Bilirubin 0.2 mg/dL (0.3-1.0) L 04/19/17 04:50 AST 18 U/L (13-39) 04/19/17 04:50 ALT 13 U/L (7-52) 04/19/17 04:50 Alkaline Phosphatase 51 U/L (34-104) 04/19/17 04:50 Ammonia 44 umol/L (16-53) 04/18/17 04:50 Creatine Kinase 104 U/L (30-223) 04/17/17 18:59 Troponin I < 0.01 ng/mL (0.01-0.05) L 04/17/17 18:59 B-Natriuretic Peptide 143.0 pg/mL (5.0-100.0) H 04/17/17 18:59 Total Protein 5.7 gm/dL (6.0-8.3) L 04/19/17 04:50 Albumin 3.0 gm/dL (4.2-5.5) L 04/19/17 04:50 Globulin 2.7 gm/dL 04/19/17 04:50 Albumin/Globulin Ratio 1.1 (1.0-1.8) 04/19/17 04:50 Triglycerides 85 mg/dL (<150) 04/17/17 18:59 Cholesterol 111 mg/dL (<200) 04/17/17 18:59 LDL Cholesterol Direct 67 mg/dL (75-193) L 04/17/17 18:59 HDL Cholesterol 47 mg/dL (23-92) 04/17/17 18:59 TSH 1.79 uIU/ml (0.34-5.60) 04/18/17 04:50 Stool Occult Blood NEGATIVE (NEGATIVE) 04/21/17 00:05 Helicobacter pylori Ab NEGATIVE (NEGATIVE) 04/19/17 13:42 - Physical Exam Vitals and I&O: Vital Signs Temp 97.5 F 04/22/17 14:23 Pulse 83 04/22/17 14:23 Resp 18 04/22/17 14:23 BP 115/72 04/22/17 14:23 Pulse Ox 98 04/22/17 14:23 Intake & Output 18 18 04/22/17 18:59 06:59 18:59 Intake Total 050.795 7290.333 856 Balance 825.280 3677.333 856 Weight (lbs) 68.719 kg Intake: Intake, IV Amount 789.333 825.333 856 D5-0.45NS 1,000 ml @ 80 789.333 825.333 856 mls/hr IV .[id number] [facility] Rx #:[id number] Oral 1550 Other: # Voids 3 Active Medications: Current Medications Acetaminophen (Tylenol) 650 mg PO BID NICKI Stop: 06/17/17 08:59 Last Admin: 04/22/17 08:08 Dose: 650 mg Acetaminophen (Tylenol) 650 mg PO Q4H PRN PRN Reason: Pain Or Fever above 101 Stop: 06/16/17 20:10 Acetaminophen/Hydrocodone Bitart ([place] 5mg/325mg) 1 tab PO Q4H PRN PRN Reason: Pain (Severe) Stop: 06/20/17 15:16 Last Admin: 04/22/17 13:03 Dose: 1 tab Al Hydrox/Mg Hydrox/Simethicone (Maalox) 30 ml PO Q6H PRN PRN Reason: Dyspepsia Stop: 06/16/17 20:10 Albuterol Sulfate (Albuterol 2.5mg/3ml Neb Ud) 2.5 mg HHN Q2HRT PRN PRN Reason: Shortness of Breath or Wheeze Stop: 06/16/17 20:10 Last Admin: 04/21/17 15:14 Dose: 2.5 mg Aripiprazole (Abilify) 10 mg PO HS NICKI PRN Reason: Protocol Stop: 06/16/17 20:59 Last Admin: 04/21/17 21:55 Dose: 10 mg Cyclobenzaprine HCl (Flexeril) 10 mg PO Q8HR PRN PRN Reason: Spasms Stop: 06/16/17 21:36 Last Admin: 04/22/17 13:03 Dose: 10 mg Docusate Sodium (Colace) 100 mg PO DAILY [facility] Stop: 06/17/17 08:59 Last Admin: 04/22/17 08:09 Dose: 100 mg Duloxetine HCl (Cymbalta) 30 mg PO DAILY NICKI PRN Reason: Protocol Stop: 06/17/17 08:59 Last Admin: 04/22/17 08:08 Dose: 30 mg Ferrous Sulfate (Iron) 325 mg PO DAILY [facility] Stop: 06/17/17 08:59 Last Admin: 04/22/17 08:09 Dose: 325 mg Gabapentin (Neurontin) 300 mg PO TID NICKI Stop: 06/16/17 20:59 Last Admin: 04/22/17 13:03 Dose: 300 mg Ipratropium [place] (Atrovent Neb 0.5mg/2.5ml) 0.5 mg HHN Q2HRT PRN PRN Reason: Shortness of Breath or Wheeze Stop: 06/16/17 20:10 Last Admin: 04/21/17 15:14 Dose: 0.5 mg Lorazepam (Ativan) 0.5 mg PO Q4H PRN; Protocol PRN Reason: Anxiety Stop: 06/18/17 11:58 Magnesium Hydroxide (Milk Of Magnesia) 30 ml PO DAILY PRN PRN Reason: Constipation Stop: 06/16/17 20:07 Nitroglycerin (Nitrostat) 0.4 mg SL Q5MIN PRN PRN Reason: Chest Pain Stop: 06/16/17 20:10 Ondansetron HCl (Zofran) 4 mg IV Q8H PRN PRN Reason: Nausea / Vomiting Stop: 06/16/17 20:10 Pantoprazole Sodium (Protonix) 40 mg PO BID NICKI Stop: 06/17/17 08:59 Last Admin: 04/22/17 08:09 Dose: 40 mg Zolpidem Tartrate (Ambien) 5 mg PO HS PRN PRN Reason: Insomnia Stop: 06/20/17 11:37 Last Admin: 04/21/17 23:48 Dose: 5 mg General: Alert HEENT: Atraumatic Neck: Supple Cardiovascular: Regular rate Lungs: Clear to auscultation Abdomen: Bowel sounds, Soft, no Tender, no Distended, no Mass, no Guarding - Procedures Procedures: Procedures Procedure Code Date COLONOSCOPY W/LESION REMOVAL 25076 04/17/17 EGD BIOPSY SINGLE/MULTIPLE 55480 04/17/17 EXCISION OF ESOPHAGUS, ENDO, DIAGN [id number] 04/17/17 EXCISION OF STOMACH, ENDO, DIAGN [id number] 04/17/17 EXCISION OF TRANSVERSE COLON, ENDO [id number] 04/17/17 Assessment/Plan - Assessment Assessment: Assessment: # Anemia # Change in bowel habits EGD/colo on 04/19 showed hiatal hernia, esophagitis, possible barretts s/p biopsy , gastritis s/p biopsy, transverse colon polyp, and hemorrhoids. Hgb stable, no further overt GI bleeding Plan: - f/u biopsy results. Treat H pylori if confirmed - if Barretts confirmed, will need appropriate surveillance EGD - next colonoscopy due 5 years - PPI - trend hgb, transfuse to keep > 7 - iron - GI saenz stable.
--- NOTE | 2017-04-22 15:49 | Pathology Report ---
[id number] Collection date: 04/19/2017 Surgeon: Dr. Topher Acosta Specimen Description: 1. Duodenum biopsy 2. Antrum biopsy 3. Esophageal biopsy 4. Transverse colon polyp Gross Description: Part I: Received in formalin are two castellano soft tissue fragments ranging from 0.1 to 0.2 cm in greatest dimension. Totally submitted in one cassette labeled A. Gross Description: Part II: Received in formalin is a single castellano soft tissue fragment measuring 0.1 cm in greatest dimension. Totally submitted in one cassette labeled B. Gross Description: Part III: Received in formalin is a single castellano soft tissue fragment measuring 0.1 cm in greatest dimension. Totally submitted in one cassette labeled C. Gross Description: Part IV: Received in formalin is a 0.4 x 0.2 x 0.2 cm polypoid portion of castellano soft tissue. Also received in the same container is a 1 x 1 x 0.2 cm aggregate of castellano-bianchi degenerated material resembling stool. Totally submitted in two cassettes labeled D1 and D2. Cassette D1 shows polyp and cassette D2 shows the degenerated material. Microscopic Description: Part I: The histologic sections show duodenal mucosa with intact intestinal villi, showing no evidence for villous abnormality. Diagnosis: Part I: No evidence for celiac disease / sprue, duodenal biopsy. Microscopic Description: Part II: The histologic sections show gastric mucosa with mild chronic inflammation present consisting of lymphocytes and plasma cells. The Giemsa stain shows no evidence for Helicobacter pylori. Diagnosis: Part II: 1. Chronic gastritis, antrum biopsy. 2. The Giemsa stain is negative for Helicobacter pylori. Microscopic Description: Part III: The histologic sections show glandular mucosa with mild chronic inflammation present consisting of lymphocytes and plasm cells. The Alcian blue stain shows no evidence for abnormality. The PAS stain shows no evidence for fungal organisms. Diagnosis: Part III: Benign glandular mucosa showing mild chronic inflammation consistent with chronic esophagogastritis (esophageal biopsy). Microscopic Description: Part IV: The histologic sections show a polypoid portion of colon mucosa with adenomatous glandular changes present consisting of nuclear enlargement and stratification, with mostly tubules formed consistent with tubular adenoma. Also received is a portion of degenerated material consistent with food and stool. Diagnosis: Part IV: Benign adenomatous polyp consistent with tubular adenoma (transverse colon). [facility]# [id number] [facility]
--- NOTE | 2017-04-23 01:08 | Progress Notes ---
DATE: 04/22/2017 CHIEF COMPLAINT: "I slept better last night." SUBJECTIVE: I met this patient. Less anxious, less depressed. Taking his medication. Reports fair sleep. The patient has been cooperative with staff. MENTAL STATUS EXAM: Speech fluent, not pressured. Affect somewhat anxious. No audiovisual hallucinations. No delusional thoughts. He is oriented x 3. PLAN: We will continue Cymbalta and Abilify, current dose. Continue him Ambien 5 mg p.o. at bedtime p.r.n. insomnia. Monitor closely. JOB# [id number]
[2017-04-23 07:08] LABS: FOLIC ACID 13.9 ng/mL (>3.0)
--- NOTE | 2017-06-21 01:26 | Discharge Summary ---
DATE OF DISCHARGE: 04/22/2017 DISCHARGE DIAGNOSES: Severe anemia, possible gastrointestinal bleed, dyslipidemia, GERD, dementia, cirrhosis and hepatitis C. HISTORY OF PRESENT ILLNESS: A 66-year-old male is well known to me. The patient was a resident of [facility] who I evaluated at the assisted. Upon reviewing the patient's laboratory results, patient's hemoglobin was at 7.4 at the assisted. Due to this reason, the patient was admitted to the med/surg unit. PHYSICAL EXAMINATION: GENERAL: The patient is well-developed, well-nourished, no acute distress. VITAL SIGNS: Stable. HEENT: Normocephalic, atraumatic. NECK: Supple. No mass. LUNGS: Clear bilaterally. ABDOMEN: Soft, nontender. HOSPITAL COURSE: During the hospital stay, the patient was admitted to the med-surg unit. The patient had GI consultation. The patient was also kept on IV fluids for hydration as well. On 04/19/2017, patient had an EGD done with biopsy and the findings were mild gastritis. The patient was kept on PPIs and patient's H and H were being monitored as well. The patient's H and H has been stable. The patient did not have any active GI bleeding. For this reason, the patient was stable for discharge. CONDITION UPON DISCHARGE: Fair. DISPOSITION: [facility]. JOB# [id number]
== END 2017-04-22 16:27 | disposition home or self-care (01) | DRG 380 ==
LOC: ER 18:34 → MSI 20:00
PROVIDERS: ADMIT Internal Medicine; ATTEND Internal Medicine
PROC: 0DB58ZX Excision of Esophagus, Via Natural or Artificial Opening Endoscopic, Diagnostic (ICD-10-PCS; principal; 2017-04-19)
PROC: 0DB68ZX Excision of Stomach, Via Natural or Artificial Opening Endoscopic, Diagnostic (ICD-10-PCS; 2017-04-19)
PROC: 0DBL8ZZ Excision of Transverse Colon, Via Natural or Artificial Opening Endoscopic (ICD-10-PCS; 2017-04-19)
PROC: 0DB98ZX Excision of Duodenum, Via Natural or Artificial Opening Endoscopic, Diagnostic (ICD-10-PCS; 2017-04-19)
DX: K22.11 Ulcer of esophagus with bleeding (principal); E43 Unspecified severe protein-calorie malnutrition; F03.90 Unspecified dementia, unspecified severity, without behavioral disturbance, psychotic disturbance, mood disturbance, and anxiety; K74.60 Unspecified cirrhosis of liver; F33.2 Major depressive disorder, recurrent severe without psychotic features; Z68.1 Body mass index [BMI] 19.9 or less, adult; K29.71 Gastritis, unspecified, with bleeding; D50.9 Iron deficiency anemia, unspecified; F20.9 Schizophrenia, unspecified; B19.20 Unspecified viral hepatitis C without hepatic coma; E78.5 Hyperlipidemia, unspecified; M06.9 Rheumatoid arthritis, unspecified; K44.9 Diaphragmatic hernia without obstruction or gangrene; K63.5 Polyp of colon; M19.011 Primary osteoarthritis, right shoulder; K21.0 Gastro-esophageal reflux disease with esophagitis; K64.8 Other hemorrhoids; Z83.3 Family history of diabetes mellitus; Z82.49 Family history of ischemic heart disease and other diseases of the circulatory system
CPT/HCPCS: 36415-UA; 70450-TC; 71045-TC; 73030-TC-RT; 73200-TC-RT; 80048-TC; 80053-TC; 80061-TC; 82140-TC; 82270-TC; 82550-TC; 82607-90; 82728-90; 82746-90; 82948-90; 83010-90; 83540-90; 83550-90; 83880-TC; 84443-TC; 84484-TC; 85007-TC; 85025-TC; 85027-TC; 85044-TC; 85610-TC; 87338-TC; 88305-90; 88312-90; 88313-90; 90779; 93005; 94760; J2704; J7613; Z7610

== ENCOUNTER 2019-06-16 11:08 | Inpatient (IN) | payer MEDICARE, MEDICAID ==
[2019-06-16 16:23] VITALS: BP 110/68
[2019-06-16] MEDS ORDERED: Maalox 30 mL Cup PO PRN (18:03)
[2019-06-16] MEDS ORDERED: Magnesium Hydroxide (MOM) 30 mL UDC PO PRN (18:03)
[2019-06-16] MEDS ORDERED: Acetaminophen 500 MG TAB PO PRN (18:03)
[2019-06-17] MEDS: Multivitamin Tab PO SCH (09:32)
--- NOTE | 2019-06-17 11:20 | Psychiatric Evaluation ---
DATE OF SERVICE: IDENTIFYING DATA: The patient is a 68-year-old male admitted here on a 5150 as a danger to self. CHIEF COMPLAINT: "I'm feeling depressed, I want to end it." HISTORY OF PRESENT ILLNESS: This is the second psychiatric hospitalization to [facility] for this 68-year-old who is reported to have multiple medical problems and has been having difficulty to deal with it. The patient has been reported to have rheumatoid arthritis and he has a constant pain day and night, and has been using methamphetamine to deal with the pain. The patient has been admitted over here on a 5150 after he was cleared by the [place] [facility]. The patient is reported to have been thinking of overdosing on medications in an attempt to kill himself. The patient is reported to have been having both auditory and visual hallucinations at the time of the evaluation. The patient is also reported to have been having chronic cough and was cleared for coronavirus after testing. PAST PSYCHIATRIC HISTORY: The patient is reported to have been here once before. MEDICAL HISTORY: Physical examination is requested by Dr. Ayala. SUBSTANCE ABUSE HISTORY: The patient has been abusing the methamphetamine. SOCIAL HISTORY: The patient is a resident of the custodial facility in [place]. LEGAL PROBLEMS: None at this time. MENTAL STATUS EXAMINATION: The patient is a 68-year-old, looking his stated age. Mood is noted to be depressed. Affect is constricted. The patient is suicidal with plans. No homicidal ideation is noted. The patient is responding to internal stimuli. The patient has been paranoid. The patient is alert and oriented to time, place, person, and situation, but the patient is stating that he is frustrated and does not know what to do and the patient's coping skills are noted to be extremely poor. The patient is suicidal with plans. Attention span and concentration are noted to be fair at this time, however. Insight and judgment are noted to be very much impaired. DIAGNOSES: AXIS IA: Major depressive disorder, recurrent with psychotic symptoms. AXIS IB: Methamphetamine abuse. AXIS II: None. AXIS III: As per Dr. Ayala. IMMEDIATE TREATMENT PLAN: The patient is going to be continued on the Zoloft and quetiapine and buspirone. ESTIMATED LENGTH OF STAY: 5-7 days. DISCHARGE CRITERIA: When the patient is no longer a threat to self or others and be able to cope up with the stress. JOB# [id number]
[2019-06-17] MEDS ORDERED: Albuterol Nebulizer 2.5mg/3mL HHN PRN (14:48)
--- NOTE | 2019-06-17 17:35 | Consultation ---
DATE OF CONSULTATION: 06/17/2019 INTERNAL MEDICINE CONSULTATION I am seeing this patient through request of the psychiatrist, Dr. Vigil at [facility]. REASON FOR CONSULTATION: The patient has been admitted for attempted suicide. The patient is on a 5150 hold. HISTORY OF PRESENT ILLNESS: The patient apparently tried to overdose on the medications to treat his underlying pain. The patient has severe pain in his legs and lower back, which he says has been worked up. No treatment could be offered other than physical therapy. The patient was also noted to have auditory and visual hallucinations. PAST MEDICAL HISTORY: 1. COPD. 2. Hypertension. PAST SURGICAL HISTORY: None. MEDICATIONS: List reviewed. ALLERGIES: None. SOCIAL HISTORY: The patient is a former heavy smoker. PHYSICAL EXAMINATION: VITAL SIGNS: Temperature is 97.6, pulse 68, respirations 103/72, satting 98% on room air. HEENT: Normocephalic, atraumatic head exam. NECK: Supple. CARDIOVASCULAR: Regular rate and rhythm. LUNGS: Decreased breath sounds. ABDOMEN: Soft, nontender. EXTREMITIES: No edema, cyanosis or clubbing. ASSESSMENT AND PLAN: 1. Suicide attempt. 2. Depression. 3. Chronic obstructive pulmonary disease. 4. Hypertension. The patient will continue with nebulizers every 6 hours. The patient has been started on mood stabilizing agents. I reviewed the records from the facility that he was referred from. I have discussed the care plan with nursing staff and psychiatrist. JOB# [id number] TAD
[2019-06-18] MEDS: Multivitamin Tab PO SCH (09:18)
[2019-06-18] MEDS: Pantoprazole 40 mg/Packet PO SCH (09:20)
--- NOTE | 2019-06-18 13:51 | Consultation ---
DATE OF CONSULTATION: 06/18/2019 REFERRING PHYSICIAN: Zuleima Vigil M.D. TYPE OF CONSULTATION: Psychology. HISTORY OF PRESENT ILLNESS: The patient is a 68-year-old male. The patient is being admitted on a 5150 as a danger to self. The following is by review of the medical record as well as by the patient's self-report. This is a second psychiatric hospitalization here on this unit for this gentleman. Upon interview, the patient states that he has rheumatoid arthritis in his right knee and is in constant pain. The patient is requesting to see a medical doctor. The patient admits that he has been using methamphetamine over the years to deal with the pain. The record review indicates the patient was cleared by [facility] and that the patient had reported to the staff there that he thought of overdosing on his medications in an attempt to kill himself. The patient admits auditory hallucinations at the time of this clinical interview. The patient reported having a chronic cough and was cleared for coronavirus after testing at [facility]. The patient denies any active suicidal ideation, plan or intention at this time; however, the patient does admit he has passive suicidal ideation. PAST MEDICAL HISTORY: Please see history and physical by Dr. Ayala. PAST PSYCHIATRIC HISTORY: The patient has a previous psychiatric hospitalization here at [facility]. The patient stated he is not under the care of a psychiatrist currently. The patient stated no past treatment by a psychiatrist or psychologist since his last hospitalization during this clinical interview. SUBSTANCE ABUSE HISTORY: The patient admits methamphetamine abuse for many years. He was unable to state how many. The patient stated he drinks only occasionally. The patient denied any tobacco use or any other illicit drug use. PSYCHOSOCIAL HISTORY: The patient resides in a halfway facility in [place]. The patient states he has been unemployed for many years and that he is single with no children. The patient states that he has a [id number] named Victorina that is involved in his care. The patient states no specific orthodoxy affiliation, educational or occupational history. The patient denied any history of physical or sexual abuse. He denies any current legal problems. MENTAL STATUS EXAMINATION: The patient appears to be older than his stated age. The patient's attitude is cooperative. Speech is spontaneous. Eye contact is intermittent. Mood is dysthymic with anxiety. Affect is mood congruent and reactive. Thought process shows to be linear and logical. The patient appears to be responding to internal stimuli at times and admits that he is experiencing auditory hallucinations. The patient admits to some paranoid ideation, i.e., that he feels that others are talking about him or that others are out to harm him in some way. The patient denied any suicidal ideation, plan or intention as active, but does endorse suicidal ideation that is passive. The patient has been compliant thus far with his care. Impulse control is limited. Sensorium is alert and oriented to person, place and circumstances but not date or time. The patient, upon further inquiry, admitted that he still thinks about planning a suicide attempt. Attention span and concentration are fair. The patient's immediate memory seems to be intact. Short term memory shows some impairment. Long-term memory needs further evaluation. There are apparent cognitive deficits with limited intellectual functioning directly related to the patient's periods of confusion , distractibility as well as the patient's responding to internal stimuli. It should be noted that this is also possibly due to and secondary to amphetamine abuse. The patient did not participate in the interpretation of proverbs. Insight is impaired. Judgment is impaired. DIAGNOSTIC IMPRESSION: AXIS I: 1. Major depressive disorder, recurrent, severe, with psychotic symptoms. 2. Methamphetamine abuse. AXIS II: Deferred. AXIS III: Per Dr. Ayala. TREATMENT PLAN: The patient has been seen by Dr. Vigil for psychiatric evaluation and for the management of the patient's psychotropic medications. The patient is continued on Zoloft, quetiapine and buspirone according to the attending psychiatrist. We will provide reality orientation, differentiation and integration. We will provide motivational interviewing for the patient to enter into a ready to change stage for cessation and abstinence from methamphetamine and to consider a commitment to recovery from addiction. We will encourage the patient to consider attending 12-step meetings at his halfway facility. We will continue to provide positive reinforcement for total abstinence. We will provide coping strategies for phase of life issues. We will provide support and encouragement for the patient to become compliant and stay compliant with all aspects of his care and treatment. We will provide suicide prevention interventions and offer the patient the opportunity on a daily basis to verbally contract for safety, i.e., no self- harm and no harm to others. We will provide stress management as well for the patient to increase his frustration tolerance. We will also provide coping strategies and insight oriented therapy to reduce the patient's depression. Thank you, Dr. Vigil, for this consult and the opportunity to participate with you in this patient's care. JOB# [id number] TAD
--- NOTE | 2019-06-18 15:00 | Progress Notes ---
DATE: 06/18/2019 SUBJECTIVE: The patient is lying calmly. The patient complaining of right hip pain, which is chronic for many years. Otherwise, no chest pain, shortness of breath. The patient denies any falls or gait instability. OBJECTIVE: VITAL SIGNS: Temperature is 97.7, pulse 78, respirations 18, blood pressure 104/66. HEENT: Normocephalic, atraumatic head exam. NECK: Supple. CARDIOVASCULAR: Regular rate and rhythm. LUNGS: Clear. ABDOMEN: Soft, nontender. EXTREMITIES: No edema, cyanosis or clubbing. ASSESSMENT AND PLAN: 1. Chronic obstructive pulmonary disease. 2. Depression. 3. Hypertension. The patient will continue with nebulizers every 6 hours, which include Atrovent and albuterol. Respiratory status appears to be stable. The patient will have an x-ray done of his right hip. JOB# [id number]
--- NOTE | 2019-06-19 00:56 | Progress Notes ---
DATE: 06/18/2019 SUBJECTIVE: Staff was spoken to. The patient is interviewed. Mood is noted to be irritable. Affect is constricted. The patient's insight and judgment are noted to be still impaired. Impulse control is noted to be limited. The patient is isolative and withdrawn. The patient is stating that he has been hearing voices today and that are bothering him. Coping skills at this time are noted to be very poor. Insight and judgment are noted to be limited. The patient is currently on Seroquel 200 mg at bedtime and is also getting Sertraline 100 mg in the morning. Even with these medications, the patient has been having difficult time to cope with the stress. ASSESSMENT: The patient is still depressed and psychotic. PLAN: To continue the patient with the current medications and follow. JOB# [id number]
[2019-06-19] MEDS: Pantoprazole 40 mg/Packet PO SCH (09:17)
[2019-06-19] MEDS: Multivitamin Tab PO SCH (09:18)
--- NOTE | 2019-06-19 13:17 | Progress Notes ---
DATE: 06/19/2019 SUBJECTIVE: The patient is lying calmly. The patient has some mild hip pain, which is chronic for many years. Otherwise, no shortness of breath, no chest pain today. OBJECTIVE: VITAL SIGNS: Temperature is 97.6, pulse 61, respirations 20, blood pressure 121/73, and saturating 93% on room air. HEENT: Normocephalic and atraumatic head exam. NECK: Supple. CARDIOVASCULAR: Regular rate and rhythm. LUNGS: Clear. ABDOMEN: Soft, nontender. EXTREMITIES: No edema, cyanosis or clubbing. ASSESSMENT AND PLAN: 1. Chronic obstructive pulmonary disease. 2. Depression. 3. Hypertension. 4. Right hip pain. The patient will continue with nebulizers. The patient has no gait instability. The patient has no falls noted with nursing staff, discussed extensively with RN. JOB# [id number]
--- NOTE | 2019-06-19 19:40 | Progress Notes ---
DATE: 06/19/2019 PSYCHIATRIC PROGRESS NOTE SUBJECTIVE: Staff was spoken to. The patient is interviewed. Mood is noted to be irritable. Affect is constricted. Insight and judgment at this time are noted to be still impaired. Impulse control is noted to be limited. The patient is still responding to the internal stimuli. The patient, however, has been isolative and withdrawn. Coping skills are noted to be poor. No side effects to the medications are noted at this time. ASSESSMENT: The patient is still psychotic and depressed. PLAN: To continue the patient with the current medications and followup. JOB# [id number]
[2019-06-20] MEDS: Multivitamin Tab PO SCH (09:13)
[2019-06-20] MEDS: Pantoprazole 40 mg/Packet PO SCH (09:13)
--- NOTE | 2019-06-20 21:01 | Progress Notes ---
DATE: 06/20/2019 SUBJECTIVE: Staff was spoken to. The patient is interviewed. Mood is noted to be irritable. Affect is constricted. Insight and judgment at this time are noted to be still impaired. Impulse control is noted to be limited. The patient has been having difficult time to cope with the stress. The patient continues to be paranoid and has been responding to internal stimuli and is stating that the anxiety is the one that has been bothering him a lot. The patient's sleep is noted to be poor. Appetite is noted to be improving. ASSESSMENT: The patient is still psychotic and depressed. PLAN: To continue the patient with the current medications and follow. JOB# [id number]
[2019-06-21] MEDS: Multivitamin Tab PO SCH (09:05)
[2019-06-21] MEDS: Pantoprazole 40 mg/Packet PO SCH (09:06)
--- NOTE | 2019-06-21 10:46 | Progress Notes ---
DATE: 06/21/2019 SUBJECTIVE: Staff was spoken to. The patient is interviewed. Mood is noted to be irritable. Affect is constricted. Insight and judgment are noted to be still impaired. The patient is still isolative and withdrawn and has been stating that he is still hearing the voices are telling him to end his life. Coping skills at this time are noted to be very poor. The patient has no insight into his illness. ASSESSMENT: The patient is still depressed and psychotic. PLAN: To continue the patient with the supportive therapy, encouraged the patient to verbalize the concerns rather than to act out. JOB# [id number]
--- NOTE | 2019-06-21 10:59 | Progress Notes ---
DATE: 06/20/2019 PSYCHOLOGY PROGRESS NOTE SUBJECTIVE: The patient is seen in his room and is interviewed. Case is discussed with staff. The patient presents as anxious and frustrated. Staff reports the patient continues to state that his sleep is poor; however, appetite is improving. The patient is not participating in the milieu therapy according to staff. The patient continues to verbalize suspiciousness and appears to be responding to internal stimuli. He stated he is willing to follow through with treatment. OBJECTIVE: Mood is mildly irritable and frustrated. Affect is constricted. Thought process includes preoccupation with internal stimuli with periods of confusion; however, the patient is able to respond coherently at times to the clinical interview questions when cognitively redirected and refocused. The patient denied any suicidal ideation, plan or intention. The patient endorsed auditory hallucinations and states that he continues to hear voices. The patient denied that these were persecutory or command type. The patient is withdrawn and isolative. ASSESSMENT: The patient's psychosis and depression persist. PLAN: The patient is continued on the current medications by the attending psychiatrist. We provided reality differentiation and integration. We provided remotivation for the patient to become compliant and stay compliant with his care and treatment. We encouraged the patient to get out of bed and participate in the group and milieu therapy. We provided coping strategies for chronic severe mental illness and for phase of life issues. We will follow up in 2-3 days to continue the present treatment if the patient remains admitted on the unit and is able to demonstrate the capacity to benefit from psychology services. [facility]# [id number] TAD
[2019-06-22] MEDS: Pantoprazole 40 mg/Packet PO SCH (08:27)
[2019-06-22] MEDS: Multivitamin Tab PO SCH (08:27)
--- NOTE | 2019-06-22 14:43 | Progress Notes ---
DATE: 06/22/2019 SUBJECTIVE: The patient denies shortness of breath at this time, appears to be controlled. The patient denies any fevers, chills, night sweats. The patient denies any cough. OBJECTIVE: VITAL SIGNS: Temperature is 97.4, pulse 56, respirations 20, blood pressure is 100/53. HEENT: Normocephalic, atraumatic head exam. NECK: Supple. CARDIOVASCULAR: Regular rate and rhythm. LUNGS: Decreased breath sounds. ABDOMEN: Soft, nontender. EXTREMITIES: No edema, cyanosis or clubbing. ASSESSMENT AND PLAN: 1. Chronic obstructive pulmonary disease. 2. Depression. 3. Hypertension. The patient will continue with nebulizers. We will monitor the respiratory status. Discussed care plan with nursing staff. JOB# [id number]
--- NOTE | 2019-06-22 23:40 | Progress Notes ---
DATE: 06/22/2019 SUBJECTIVE: Staff was spoken to. The patient is interviewed. Mood is noted to be depressed. Affect is constricted. The patient is still endorsing to auditory hallucinations. Coping skills are noted to be very poor. The patient is isolative and withdrawn. The patient is currently on Seroquel and Zoloft and has been able to tolerate. No side effects to the medications are noted. However, the patient has been stating that he is more worried about the virus and he is not able to sleep. No major medical issues are noted at this time. PLAN: Plan is to closely monitor the patient. I encouraged the patient to verbalize the concerns rather than to act out. JOB# [id number]
[2019-06-23] MEDS: Pantoprazole 40 mg/Packet PO SCH (08:19)
[2019-06-23] MEDS: Multivitamin Tab PO SCH (08:20)
--- NOTE | 2019-06-23 11:36 | Diagnostic Imaging Report ---
Pelvis and right hip 2 views Indication: pain Comparison: none Findings: Radiodensities probably external material is seen projecting along the proximal right proximal femur on lateral views. There is prominence of bilateral femoral head/neck junctions with slight irregularity of the right lateral femoral head/neck junction probably due to osteophytic spurring. Otherwise no evidence of a gross fracture or dislocation. Mild degenerative changes of both hip joints are noted. Degenerative changes lower lumbar spine is noted. Impression: Slight irregularity of the right lateral femoral head/neck junction probably due to degenerative etiology and osteophytic spurring. A nondisplaced fracture is much less likely. Otherwise no evidence of a fracture or dislocation. Mild degenerative changes with prominence of bilateral femoral head/neck junctions laterally which may predispose the patient to impingement in the appropriate clinical setting Degenerative changes of the lower lumbar spine. In the setting of trauma, if clinical symptoms persist and there is continued concern for an occult fracture, follow up exams in 5-7 days is suggested. If indicated CT or MRI follow-up may be performed.
--- NOTE | 2019-06-23 17:47 | Progress Notes ---
DATE: 06/22/2019 PSYCHOLOGY PROGRESS NOTE SUBJECTIVE: The patient is seen and is interviewed. Case is discussed with staff. The patient presents as depressed and withdrawn. The patient continues to admit and to endorse that he is experiencing voices, i.e., auditory hallucinations, but denied that they are command type. The patient is compliant with his medication according to the staff, but continues to be isolative. He complained of poor sleep and poor appetite. OBJECTIVE: Mood is depressed. Affect is mood congruent. Thought process shows to be depressogenic and includes auditory hallucinations and responding to internal stimuli. The patient denied any active suicidal ideation with a plan or intention at this time; however, the patient does admit that he continues to have passive suicidal ideation. The patient is anhedonic, anergic and amotivated, but compliant with his medication. ASSESSMENT: The patient's depression and psychosis persist. PLAN: We will continue the present therapy. We provided reality orientation, differentiation and integration. We provided cognitive behavioral therapy to reduce the patient's depression. We encouraged the patient to participate in treatment and to get out of bed and join milieu therapy. We provided suicide prevention intervention and continue to offer the patient the opportunity to verbally contract for safety. The patient was able to verbally contract for safety during this visit. We will follow up in 2-3 days to continue the present treatment if the patient remains on the unit and is able to demonstrate the capacity to benefit from psychology services. JOB# [id number] TAD
--- NOTE | 2019-06-23 23:02 | Progress Notes ---
DATE: 06/23/2019 PSYCHIATRIC PROGRESS NOTE SUBJECTIVE: Staff was spoken to. The patient is interviewed. Mood is noted to be irritable. Affect is constricted. Insight and judgment at this time are noted to be still impaired. Impulse control seems to be limited. Coping skills are noted to be limited. The patient has been having difficult time to cope with the stress. The patient is currently on Seroquel and he states that he likes the olanzapine better than the Seroquel and hence it is decided to decrease the Seroquel dose to 100 mg and gradually increase the dose on the olanzapine to 5 mg twice a day and follow the patient up with the supportive therapy. The patient at this time is still paranoid and has been getting easily agitated and is not ready to be discharged to a lower level of care. ASSESSMENT: The patient is still psychotic. PLAN: To continue the patient with the supportive therapy, encouraged the patient to verbalize the concerns rather than to act out. JOB# [id number]
[2019-06-24] MEDS: Multivitamin Tab PO SCH (08:24)
[2019-06-24] MEDS: Pantoprazole 40 mg/Packet PO SCH (08:24)
--- NOTE | 2019-06-24 10:38 | Internal Medicine Prog Note ---
Internal Medicine Subjective - Subjective Service Date: 06/24/19 Patient seen and examined:: with staff Patient is:: awake, verbal, interactive (no sob) Internal Medicine Objective - Results Recent Labs: Laboratory Last Values POC Glucose 122 MG/DL (70 - 105) H 06/16/19 18:31 - Physical Exam Vitals and I&O: Vital Signs Temp 96.8 F 06/24/19 06:08 Pulse 65 06/24/19 06:08 Resp 15 06/24/19 08:00 BP 93/60 06/24/19 06:08 Pulse Ox 94 06/24/19 06:08 Intake & Output 06/23/19 06/24/19 06/24/19 18:59 06:59 18:59 Intake Total 950 360 Balance 950 360 Intake: Oral 950 360 Other: # Voids 4 1 # Bowel Movements 1 0 Active Medications: Current Medications Acetaminophen (Tylenol) 650 mg PO Q4H PRN PRN Reason: Pain (Mild 1-3) Stop: 08/15/19 18:02 Acetaminophen (Tylenol Extra Strength) 1,000 mg PO Q6H PRN PRN Reason: Pain (Moderate 4-6) Stop: 08/15/19 18:02 Acetaminophen (Tylenol) 650 mg PO BID NICKI Stop: 08/16/19 16:59 Last Admin: 06/24/19 08:25 Dose: Not Given Al Hydrox/Mg Hydrox/Simethicone (Maalox) 30 ml PO Q4HR PRN PRN Reason: GI DISTRESS Stop: 08/15/19 18:02 Albuterol Sulfate (Albuterol 2.5mg/3ml Neb Ud) 2.5 mg HHN Q2HRT PRN PRN Reason: Shortness of Breath or Wheeze Stop: 08/16/19 14:47 Last Admin: 06/19/19 14:07 Dose: 2.5 mg Ibuprofen (Motrin) 400 mg PO Q4H PRN PRN Reason: Pain (Severe 7-10) Stop: 08/15/19 18:02 Last Admin: 06/20/19 11:16 Dose: 400 mg Lorazepam (Ativan) 0.5 mg PO BID NICKI; Protocol Stop: 08/18/19 16:59 Last Admin: 06/24/19 08:25 Dose: 0.5 mg Magnesium Hydroxide (Milk Of Magnesia) 30 ml PO HS PRN PRN Reason: Constipation Multivitamins/Vitamin C (Theragran) 1 tab PO DAILY NICKI Stop: 08/16/19 08:59 Last Admin: 06/24/19 08:24 Dose: 1 tab Olanzapine (Zyprexa) 5 mg PO DAILY NICKI; Protocol Stop: 08/22/19 08:59 Last Admin: 06/24/19 08:26 Dose: 5 mg Olanzapine (Zyprexa) 5 mg PO HS NICKI; Protocol Stop: 08/22/19 20:59 Last Admin: 06/23/19 21:11 Dose: 5 mg Pantoprazole Sodium (Protonix) 20 mg PO DAILY NICKI Stop: 08/17/19 08:59 Last Admin: 06/24/19 08:24 Dose: 20 mg Quetiapine Fumarate (Seroquel) 100 mg PO HS NICKI; Protocol Stop: 08/22/19 20:59 Last Admin: 06/23/19 21:12 Dose: 100 mg Ropinirole HCl (Requip) 0.5 mg PO HS NICKI Stop: 08/15/19 20:59 Last Admin: 06/23/19 21:13 Dose: 0.5 mg Sertraline HCl (Zoloft) 100 mg PO DAILY NICKI; Protocol Stop: 08/16/19 08:59 Last Admin: 06/24/19 08:24 Dose: 100 mg Zolpidem Tartrate (Ambien) 5 mg PO HS PRN PRN Reason: Insomnia Stop: 08/15/19 18:02 Last Admin: 06/23/19 21:13 Dose: 5 mg General: thin HEENT: NC/AT, PERRLA, EOMI Neck: Supple, No JVD, No thyromegaly Lungs: CTAB Cardiovascular: RRR, Normal S1, Normal S2 Abdomen: soft, non-tender Extremities: clear Neurological: no change - Procedures Procedures: Procedures Procedure Code Date COLONOSCOPY W/LESION REMOVAL 53025 04/17/17 EGD BIOPSY SINGLE/MULTIPLE 70572 04/17/17 EXCISION OF DUODENUM, ENDO, DIAGN [id number] 04/17/17 EXCISION OF ESOPHAGUS, ENDO, DIAGN [id number] 04/17/17 EXCISION OF STOMACH, ENDO, DIAGN [id number] 04/17/17 EXCISION OF TRANSVERSE COLON, ENDO [id number] 04/17/17 Internal Medicine Assmt/Plan - Assessment Assessment: 1. Hip pain 2. COPD 3. Acute psychosis 4. HtN - Plan Plan: reviewed x-rays. pain in right hip has been present for 10 years with gradual worsening. explained this to patient continue BP meds Nutritional Asmnt/Malnutr-PDOC - Dietary Evaluation Malnutrition Findings (Please click <Entered> for more info): Nutritional Asmnt/Malnutrition Start: 06/17/19 15: 57 Text: Status: Complete Freq: Protocol: Document 06/20/19 09:37 [email or web address] (Rec: 06/20/19 09:37 [email or web address] CHACHA- [email or web address]) Nutritional Asmnt/Malnutrition Patient General Information Subjective Information Nutrition Follow Up Edgardo Banks 54A Initial nutrition assessment completed, please refer under Plan of care tab. Admitting Diagnosis: Psychosis Nutrition Assessment Medical/Surgical Hx: Diet Rx: Mechanical soft, chopped Subjective/Changes in Condition: Pt is a 68-year-old male admitted on 06/15 d/t danger to self, suicidal ideations. Pt underweight, BMI 17.64- pt received Ensure at his home facility, being added to diet Rx TID to promote/ support gradual weight gain trending toward IBW- pt prefers chocolate. Pt ate 100% breakfast, lunch, and snacks provided today. Will continue to monitor PO intake and weight trends. Anthropometrics: HT: 74in WT: 137 LB (62.2kg) BMI: 17.6 (underweight) GI symptoms: WNL, soft, non- tender Last BM: 06/17 x 1 PO Intake: 100% x 3 days Skin Integrity: Intact Crispin: 18 Estimated Nutrient Needs ( Geriatric, CBW) Kcal: ~ 9846-9985 kcal/day (30 -35 kcals/kg) Protein: ~ 75-80gm/day (1.2-1. 3 g/kg) Fluid: ~ 6043-1012 ml/day (1 ml/kcal) Pertinent Labs: POC Glucose ( last 24 hours): 122 Pertinent Medications: Maalox, MOM, Theragran, protonix Nutrition Diagnosis: Underweight related to possible inadequate intake aeb BMI 17.6 Nutrition Intervention: Continue mechanical soft, chopped diet as tolerated. Continue Ensure Enlive TID. Nutrition Monitoring/ Evaluation Monitor PO intake, wt, nutrition related labs, and skin integrity. F/U as low risk in 7-10 days, 06/26-06/29 Kristine Hall MPH, RD Pertinent Labs Nutrition Follow Up Initial nutrition assessment completed, please refer under Plan of care tab. Admitting Diagnosis: Psychosis Nutrition Assessment Medical/Surgical Hx: Diet Rx: Subjective/Changes in Condition: Anthropometrics: HT: WT: LB (kg) BMI: 20.1 ( normal) GI symptoms: WNL, soft, non- tender Skin Integrity: Crispin: Last BM: Estimated Nutrient Needs ( Geriatric, CBW) Kcal: ~ kcal/day (25-30 kcals/ kg) Protein: ~ gm/day (1.0-1.2 g/ kg) Fluid: ~ ml/day (1 ml/kcal) Pertinent Labs: Pertinent Medications: Nutrition Diagnosis: No nutrition diagnosis at this time Nutrition Intervention: Continue regular diet as tolerated. Nutrition Monitoring/ Evaluation 1. 2. Monitor PO intake, wt, nutrition related labs, and skin integrity. 3. F/U as low risk in 7-10 days, 06/25-06/28. Kristine Hall MPH, RD
--- NOTE | 2019-06-24 22:24 | Progress Notes ---
DATE: 06/24/2019 SUBJECTIVE: Staff was spoken to. The patient is interviewed. Mood is noted to be irritable. Affect is . The patient continues to be testing the limits. The patient has been having difficult time to cope with the stress. No side effects to medications are noted. The patient is reporting that the Zyprexa has been of some help to him compared with the Seroquel and hence the patient has been placed on Zyprexa 5 mg twice a day and Seroquel is being gradually decreased. Insight and judgment are noted to be still impaired. Impulse control is noted to be limited. The patient continues to be paranoid. ASSESSMENT: The patient is still psychotic. PLAN: To continue the patient with the supportive therapy, encouraged the patient to verbalize the concerns rather than to act out. JOB# [id number]
[2019-06-25] MEDS: Pantoprazole 40 mg/Packet PO SCH (09:10)
[2019-06-25] MEDS: Multivitamin Tab PO SCH (09:11)
--- NOTE | 2019-06-25 10:23 | Progress Notes ---
DATE: 06/24/2019 PSYCHOLOGY PROGRESS NOTE SUBJECTIVE: The patient is seen in his room. The patient is in bed and somnolent, but arousable. The patient is interviewed and case has been discussed with staff. The patient seemed to be more cooperative this visit. Staff reports the patient tests the limits with the staff from time to time. 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 The patient states that he is compliant with his care and treatment. However, impulse control continues to be problematic and there is some suspiciousness that continues. OBJECTIVE: Mood is apathetic. Affect is mood congruent. Thought process shows to be linear and concrete. There is some evidence of possible paranoid ideation present. The patient denied any suicidal ideation, plan or intention actively; however, the patient states that he does passively think about ending his life sometimes. The patient stated suicidal thoughts are not as frequent or as intense or last as long as before. The patient is mostly isolative. ASSESSMENT: The patient's psychosis and depression persist, but seem to be improving. PLAN: We provided coping strategies for phase of life issues as well as for chronic severe mental illness. We provided reality integration. We provided remotivation for the patient to become compliant and stay compliant with all aspects of his care and treatment. We provided suicidal assessment with prevention. We encouraged the patient to verbally contract for safety for no self-harm. The patient was able to agree to this and stated that if he is re-experiencing any suicidal thoughts he will discuss this with the staff and with the team of providers here on the unit. We provided coping strategies to diminish his depression as well. We will follow up in 2-3 days and continue the present treatment if the patient remains on the unit and is willing to participate in his treatment. JOB# [id number] TAD
--- NOTE | 2019-06-25 11:59 | Internal Medicine Prog Note ---
Internal Medicine Subjective - Subjective Service Date: 06/25/19 Patient seen and examined:: without staff, other (complaining of hip pain) Patient is:: awake, verbal, interactive (no sob) Internal Medicine Objective - Results Recent Labs: Laboratory Last Values POC Glucose 122 MG/DL (70 - 105) H 06/16/19 18:31 - Physical Exam Vitals and I&O: Vital Signs Temp 97.8 F 06/25/19 06:09 Pulse 69 06/25/19 06:09 Resp 16 06/25/19 08:00 BP 106/66 06/25/19 06:09 Pulse Ox 94 06/25/19 06:09 Intake & Output 06/24/19 06/25/19 06/25/19 18:59 06:59 18:59 Intake Total 1200 120 Balance 1200 120 Intake: Oral 1200 120 Other: # Voids 1 # Bowel Movements 1 0 Active Medications: Current Medications Acetaminophen (Tylenol) 650 mg PO Q4H PRN PRN Reason: Pain (Mild 1-3) Stop: 08/15/19 18:02 Acetaminophen (Tylenol Extra Strength) 1,000 mg PO Q6H PRN PRN Reason: Pain (Moderate 4-6) Stop: 08/15/19 18:02 Acetaminophen (Tylenol) 650 mg PO BID [facility] Stop: 08/16/19 16:59 Last Admin: 06/25/19 09:10 Dose: Not Given Al Hydrox/Mg Hydrox/Simethicone (Maalox) 30 ml PO Q4HR PRN PRN Reason: GI DISTRESS Stop: 08/15/19 18:02 Albuterol Sulfate (Albuterol 2.5mg/3ml Neb Ud) 2.5 mg HHN Q2HRT PRN PRN Reason: Shortness of Breath or Wheeze Stop: 08/16/19 14:47 Last Admin: 06/19/19 14:07 Dose: 2.5 mg Ibuprofen (Motrin) 400 mg PO Q4H PRN PRN Reason: Pain (Severe 7-10) Stop: 08/15/19 18:02 Last Admin: 06/20/19 11:16 Dose: 400 mg Lorazepam (Ativan) 0.5 mg PO BID [facility]; Protocol Stop: 08/18/19 16:59 Last Admin: 06/25/19 09:11 Dose: 0.5 mg Multivitamins/Vitamin C (Theragran) 1 tab PO DAILY [facility] Stop: 08/16/19 08:59 Last Admin: 06/25/19 09:11 Dose: 1 tab Olanzapine (Zyprexa) 5 mg PO DAILY [facility]; Protocol Stop: 08/22/19 08:59 Last Admin: 06/25/19 09:11 Dose: 5 mg Olanzapine (Zyprexa) 5 mg PO HS [facility]; Protocol Stop: 08/22/19 20:59 Last Admin: 06/24/19 20:52 Dose: 5 mg Pantoprazole Sodium (Protonix) 20 mg PO DAILY N[facility] Stop: 08/17/19 08:59 Last Admin: 06/25/19 09:10 Dose: 20 mg Quetiapine Fumarate (Seroquel) 100 mg PO HS [facility]; Protocol Stop: 08/22/19 20:59 Last Admin: 06/24/19 20:52 Dose: 100 mg Ropinirole HCl (Requip) 0.5 mg PO HS [facility] Stop: 08/15/19 20:59 Last Admin: 06/24/19 20:53 Dose: 0.5 mg Sertraline HCl (Zoloft) 100 mg PO DAILY [facility]; Protocol Stop: 08/16/19 08:59 Last Admin: 06/25/19 09:11 Dose: 100 mg Zolpidem Tartrate (Ambien) 5 mg PO HS PRN PRN Reason: Insomnia Stop: 08/15/19 18:02 Last Admin: 06/24/19 20:52 Dose: 5 mg General: thin HEENT: NC/AT, PERRLA, EOMI Neck: Supple, No JVD, No thyromegaly Lungs: CTAB Cardiovascular: RRR, Normal S1, Normal S2 Abdomen: soft, non-tender Extremities: clear Neurological: no change - Procedures Procedures: Procedures Procedure Code Date COLONOSCOPY W/LESION REMOVAL 66044 04/17/17 EGD BIOPSY SINGLE/MULTIPLE 74219 04/17/17 EXCISION OF DUODENUM, ENDO, DIAGN [id number] 04/17/17 EXCISION OF ESOPHAGUS, ENDO, DIAGN [id number] 04/17/17 EXCISION OF STOMACH, ENDO, DIAGN [id number] 04/17/17 EXCISION OF TRANSVERSE COLON, ENDO [id number] 04/17/17 Internal Medicine Assmt/Plan - Assessment Assessment: 1. Hip pain 2. COPD 3. Acute psychosis 4. HtN - Plan Plan: continue tylenol and NSAIDS prn for pain will escalate to opiates if not better d/w R.N. Nutritional Asmnt/Malnutr-PDOC - Dietary Evaluation Malnutrition Findings (Please click <Entered> for more info): Nutritional Asmnt/Malnutrition Start: 06/17/19 15: 57 Text: Status: Complete Freq: Protocol: Document 06/20/19 09:37 ANALI (Rec: 06/20/19 09:37 [email or web address] BURNHAM- [email or web address]) Nutritional Asmnt/Malnutrition Patient General Information Subjective Information Nutrition Follow Up Edgardo Banks 54A Initial nutrition assessment completed, please refer under Plan of care tab. Admitting Diagnosis: Psychosis Nutrition Assessment Medical/Surgical Hx: Diet Rx: Mechanical soft, chopped Subjective/Changes in Condition: Pt is a 68-year-old male admitted on 06/15 d/t danger to self, suicidal ideations. Pt underweight, BMI 17.64- pt received Ensure at his home facility, being added to diet Rx TID to promote/ support gradual weight gain trending toward IBW- pt prefers chocolate. Pt ate 100% breakfast, lunch, and snacks provided today. Will continue to monitor PO intake and weight trends. Anthropometrics: HT: 74in WT: 137 LB (62.2kg) BMI: 17.6 (underweight) GI symptoms: WNL, soft, non- tender Last BM: 06/17 x 1 PO Intake: 100% x 3 days Skin Integrity: Intact Crispin: 18 Estimated Nutrient Needs ( Geriatric, CBW) Kcal: ~ 6901-4666 kcal/day (30 -35 kcals/kg) Protein: ~ 75-80gm/day (1.2-1. 3 g/kg) Fluid: ~ 5071-5210 ml/day (1 ml/kcal) Pertinent Labs: POC Glucose ( last 24 hours): 122 Pertinent Medications: Maalox, MOM, Theragran, protonix Nutrition Diagnosis: Underweight related to possible inadequate intake aeb BMI 17.6 Nutrition Intervention: Continue mechanical soft, chopped diet as tolerated. Continue Ensure Enlive TID. Nutrition Monitoring/ Evaluation Monitor PO intake, wt, nutrition related labs, and skin integrity. F/U as low risk in 7-10 days, 06/26-06/29 Kristine Hall MPH, RD Pertinent Labs Nutrition Follow Up Initial nutrition assessment completed, please refer under Plan of care tab. Admitting Diagnosis: Psychosis Nutrition Assessment Medical/Surgical Hx: Diet Rx: Subjective/Changes in Condition: Anthropometrics: HT: WT: LB (kg) BMI: 20.1 ( normal) GI symptoms: WNL, soft, non- tender Skin Integrity: Crispin: Last BM: Estimated Nutrient Needs ( Geriatric, CBW) Kcal: ~ kcal/day (25-30 kcals/ kg) Protein: ~ gm/day (1.0-1.2 g/ kg) Fluid: ~ ml/day (1 ml/kcal) Pertinent Labs: Pertinent Medications: Nutrition Diagnosis: No nutrition diagnosis at this time Nutrition Intervention: Continue regular diet as tolerated. Nutrition Monitoring/ Evaluation 1. 2. Monitor PO intake, wt, nutrition related labs, and skin integrity. 3. F/U as low risk in 7-10 days, 06/25-06/28. Kristine Hall MPH, RD
--- NOTE | 2019-06-26 00:26 | Progress Notes ---
DATE: 06/25/2019 PSYCHIATRIC PROGRESS NOTE SUBJECTIVE: Staff was spoken to. The patient is interviewed. Mood is noted to be anxious. Affect is constricted. Insight and judgment are noted to be improving. Impulse control is noted to be fair. No side effects to the medications are noted. The patient has been willing to comply with the treatment. The patient is stating that the Zyprexa is working better for him than the Seroquel. ASSESSMENT: The patient's psychosis is resolving. PLAN: To continue the patient with the current medications and possibly discharge the patient tomorrow for followup on an outpatient basis. JOB# [id number]
[2019-06-26] MEDS: Pantoprazole 40 mg/Packet PO SCH (08:51)
[2019-06-26] MEDS: Multivitamin Tab PO SCH (08:52)
--- NOTE | 2019-06-26 09:28 | Discharge Summary ---
DATE OF DISCHARGE: 06/26/2019 IDENTIFYING DATA: The patient is a 68-year-old admitted to the [facility] for his depression and impulsive behavior and suicidal ideation. HISTORY OF PRESENT ILLNESS: Please refer to the 06/17/2019 dictation done by me. HOSPITAL COURSE AND RESPONSE TO TREATMENT: The patient had the physical examination done by Dr. Ayala and is noted to be significant for COPD and hypertension. The patient has been observed on inpatient unit, provided with supportive psychotherapy. The patient has been encouraged to participate in the groups and verbalize the concerns. The patient initially was on Seroquel later it was changed to Zyprexa that was given 5 mg twice a day. The patient has been able to tolerate. The patient continued with the Seroquel 100 mg with the plan to discontinue the medication when he is going to be discharged and than he is going to be monitored and titrated on an outpatient basis. During the hospitalization, the patient's psychosis started to resolve and the agitation, came under control. The patient was not presenting with any threats to harm self or others and hence he was discharged. MENTAL STATUS EXAMINATION AT THE TIME OF DISCHARGE: Noted to be stable. The patient is not presenting with any threats to harm self or others. DIAGNOSES AT THE TIME OF THE DISCHARGE: AXIS I: Major depressive disorder, recurrent with psychotic symptoms. AXIS II: None. AXIS III: Hypertension, chronic obstructive pulmonary disease. AFTERCARE PLAN: The patient is discharged to self care to be followed up on an outpatient basis. JOB# [id number]
--- NOTE | 2019-06-26 14:17 | Internal Medicine Prog Note ---
Internal Medicine Subjective - Subjective Service Date: 06/26/19 Patient seen and examined:: without staff Patient is:: awake, verbal, interactive (no sob) Per staff patient has:: no adverse event, no episodes of fall Internal Medicine Objective - Results Recent Labs: Laboratory Last Values POC Glucose 122 MG/DL (70 - 105) H 06/16/19 18:31 - Physical Exam Vitals and I&O: Vital Signs Temp 98.7 F 06/26/19 05:48 Pulse 78 06/26/19 05:48 Resp 18 06/26/19 08:00 BP 105/69 06/26/19 05:48 Pulse Ox 95 06/26/19 05:48 Intake & Output 06/25/19 06/26/19 06/26/19 18:59 06:59 18:59 Intake Total 1200 240 Balance 1200 240 Intake: Oral 1200 240 Other: # Voids 4 2 # Bowel Movements 1 0 Active Medications: Current Medications Acetaminophen (Tylenol) 650 mg PO Q4H PRN PRN Reason: Pain (Mild 1-3) Stop: 08/15/19 18:02 Acetaminophen (Tylenol Extra Strength) 1,000 mg PO Q6H PRN PRN Reason: Pain (Moderate 4-6) Stop: 08/15/19 18:02 Acetaminophen (Tylenol) 650 mg PO BID [facility] Stop: 08/16/19 16:59 Last Admin: 06/26/19 08:53 Dose: 650 mg Al Hydrox/Mg Hydrox/Simethicone (Maalox) 30 ml PO Q4HR PRN PRN Reason: GI DISTRESS Stop: 08/15/19 18:02 Albuterol Sulfate (Albuterol 2.5mg/3ml Neb Ud) 2.5 mg HHN Q2HRT PRN PRN Reason: Shortness of Breath or Wheeze Stop: 08/16/19 14:47 Last Admin: 06/19/19 14:07 Dose: 2.5 mg Ibuprofen (Motrin) 400 mg PO Q4H PRN PRN Reason: Pain (Severe 7-10) Stop: 08/15/19 18:02 Last Admin: 06/20/19 11:16 Dose: 400 mg Lorazepam (Ativan) 0.5 mg PO BID [facility]; Protocol Stop: 08/18/19 16:59 Last Admin: 06/26/19 08:52 Dose: 0.5 mg Multivitamins/Vitamin C (Theragran) 1 tab PO DAILY [facility] Stop: 08/16/19 08:59 Last Admin: 06/26/19 08:52 Dose: 1 tab Olanzapine (Zyprexa) 5 mg PO DAILY [facility]; Protocol Stop: 08/22/19 08:59 Last Admin: 06/26/19 08:52 Dose: 5 mg Olanzapine (Zyprexa) 5 mg PO HS [facility]; Protocol Stop: 08/22/19 20:59 Last Admin: 06/25/19 20:09 Dose: 5 mg Pantoprazole Sodium (Protonix) 20 mg PO DAILY [facility] Stop: 08/17/19 08:59 Last Admin: 06/26/19 08:51 Dose: 20 mg Quetiapine Fumarate (Seroquel) 100 mg PO HS [facility]; Protocol Stop: 08/22/19 20:59 Last Admin: 06/25/19 20:18 Dose: 100 mg Ropinirole HCl (Requip) 0.5 mg PO HS [facility] Stop: 08/15/19 20:59 Last Admin: 06/25/19 20:09 Dose: 0.5 mg Sertraline HCl (Zoloft) 100 mg PO DAILY [facility]; Protocol Stop: 08/16/19 08:59 Last Admin: 06/26/19 08:52 Dose: 100 mg Zolpidem Tartrate (Ambien) 5 mg PO HS PRN PRN Reason: Insomnia Stop: 08/15/19 18:02 Last Admin: 06/25/19 21:09 Dose: 5 mg General: thin HEENT: NC/AT, PERRLA, EOMI Neck: Supple, No JVD, No thyromegaly Lungs: CTAB Cardiovascular: RRR, Normal S1, Normal S2 Abdomen: soft, non-tender Extremities: clear Neurological: no change - Procedures Procedures: Procedures Procedure Code Date COLONOSCOPY W/LESION REMOVAL 17607 04/17/17 EGD BIOPSY SINGLE/MULTIPLE 74348 04/17/17 EXCISION OF DUODENUM, ENDO, DIAGN [id number] 04/17/17 EXCISION OF ESOPHAGUS, ENDO, DIAGN [id number] 04/17/17 EXCISION OF STOMACH, ENDO, DIAGN [id number] 04/17/17 EXCISION OF TRANSVERSE COLON, ENDO [id number] 04/17/17 Internal Medicine Assmt/Plan - Assessment Assessment: 1. Hip pain 2. COPD 3. Acute psychosis 4. HtN - Plan Plan: discharge today Nutritional Asmnt/Malnutr-PDOC - Dietary Evaluation Malnutrition Findings (Please click <Entered> for more info): Nutritional Asmnt/Malnutrition Start: 06/17/19 15: 57 Text: Status: Complete Freq: Protocol: Document 06/20/19 09:37 ANALI (Rec: 06/20/19 09:37 ANALI BURNHAM- DIET1) Nutritional Asmnt/Malnutrition Patient General Information Subjective Information Nutrition Follow Up Edgardo Banks 54A Initial nutrition assessment completed, please refer under Plan of care tab. Admitting Diagnosis: Psychosis Nutrition Assessment Medical/Surgical Hx: Diet Rx: Mechanical soft, chopped Subjective/Changes in Condition: Pt is a 68-year-old male admitted on 06/15 d/t danger to self, suicidal ideations. Pt underweight, BMI 17.64- pt received Ensure at his home facility, being added to diet Rx TID to promote/ support gradual weight gain trending toward IBW- pt prefers chocolate. Pt ate 100% breakfast, lunch, and snacks provided today. Will continue to monitor PO intake and weight trends. Anthropometrics: HT: 74in WT: 137 LB (62.2kg) BMI: 17.6 (underweight) GI symptoms: WNL, soft, non- tender Last BM: 06/17 x 1 PO Intake: 100% x 3 days Skin Integrity: Intact Crispin: 18 Estimated Nutrient Needs ( Geriatric, CBW) Kcal: ~ 7902-8895 kcal/day (30 -35 kcals/kg) Protein: ~ 75-80gm/day (1.2-1. 3 g/kg) Fluid: ~ 0132-2736 ml/day (1 ml/kcal) Pertinent Labs: POC Glucose ( last 24 hours): 122 Pertinent Medications: Maalox, MOM, Theragran, protonix Nutrition Diagnosis: Underweight related to possible inadequate intake aeb BMI 17.6 Nutrition Intervention: Continue mechanical soft, chopped diet as tolerated. Continue Ensure Enlive TID. Nutrition Monitoring/ Evaluation Monitor PO intake, wt, nutrition related labs, and skin integrity. F/U as low risk in 7-10 days, 06/26-06/29 Kristine Hall MPH, RD Pertinent Labs Nutrition Follow Up Initial nutrition assessment completed, please refer under Plan of care tab. Admitting Diagnosis: Psychosis Nutrition Assessment Medical/Surgical Hx: Diet Rx: Subjective/Changes in Condition: Anthropometrics: HT: WT: LB (kg) BMI: 20.1 ( normal) GI symptoms: WNL, soft, non- tender Skin Integrity: Crispin: Last BM: Estimated Nutrient Needs ( Geriatric, CBW) Kcal: ~ kcal/day (25-30 kcals/ kg) Protein: ~ gm/day (1.0-1.2 g/ kg) Fluid: ~ ml/day (1 ml/kcal) Pertinent Labs: Pertinent Medications: Nutrition Diagnosis: No nutrition diagnosis at this time Nutrition Intervention: Continue regular diet as tolerated. Nutrition Monitoring/ Evaluation 1. 2. Monitor PO intake, wt, nutrition related labs, and skin integrity. 3. F/U as low risk in 7-10 days, 06/25-06/28. Kristine Hall MPH, RD
--- NOTE | 2019-06-26 21:05 | Progress Notes ---
DATE: 06/26/2019 PSYCHOLOGY PROGRESS NOTE SUBJECTIVE: The patient is seen in his room, sitting on the edge of his bed. The patient presents as friendly and cooperative. Eye contact is fair. The patient is apparently awaiting discharge today. The patient states that he anticipates returning to his previous placement. The patient states he discussed this with the caser up. He reports he is less depressed. OBJECTIVE: Mood is stabilizing and less depressed. Affect is mood congruent and reactive. Thought process shows to be linear and more goal oriented. The patient denied any active suicidal ideation, plan or intention. The patient states passive suicidal thought has lessened. The patient states that the auditory hallucinations, i.e., voices have become "quieter" and not as intrusive. The patient has been compliant with his medication. ASSESSMENT: The patient's overall condition has improved. Psychosis is resolving and the agitation is coming under control. TREATMENT PLAN: We provided remotivation and positive reinforcement for the patient to stay compliant with all aspects of his care and treatment. We reviewed suicide prevention strategies and methods, i.e., the patient agreed to verbally contract for safety with is no self-harm. He agreed that he will verbalize any self-harm thoughts or any suicidal ideation to the staff at his placement. We encouraged the patient to follow up at his placement with a psychologist as well as psychiatrist. We reviewed coping strategies for phase of life issues, and for depression, as well as for chronic severe mental illness. The patient was able to verbally contract for safety at the time of this visit. No followup is indicated. The patient is most likely discharging today according to the staff. Thank you, Dr. Vigil for this consult and the opportunity to participate with you in this patient's care. JOB# [id number] TAD
== END 2019-06-26 14:45 | DRG 885 ==
LOC: GERO 15:00
DX: F33.3 Major depressive disorder, recurrent, severe with psychotic symptoms (principal); F15.10 Other stimulant abuse, uncomplicated; T14.91XA Suicide attempt, initial encounter; J44.9 Chronic obstructive pulmonary disease, unspecified; I10 Essential (primary) hypertension; Z79.899 Other long term (current) drug therapy; Y92.89 Other specified places as the place of occurrence of the external cause
CPT/HCPCS: 73501; 82948-90; 83036-90; G0410; J7051; J7613; Z7610